=== PATIENT | male | born 1955 | race Caucasian/White ===

== ENCOUNTER → 2023-06-30 10:19 | Outpatient (REF) | payer BC, SELFPAY | LOC: DHCBS HW 10:19 | PROVIDERS: ATTENDING PHYSICIAN Internal Medicine Cardiovascular Disease; FAMILY PHYSICIAN Family Medicine | DX: I42.8 Other cardiomyopathies (principal); I50.22 Chronic systolic (congestive) heart failure; I48.0 Paroxysmal atrial fibrillation | CPT/HCPCS: 93306 ==

== ENCOUNTER → 2023-11-16 14:35 | Outpatient (REF) | payer BC, SELFPAY | LOC: HWEVLT 14:35 | PROVIDERS: ATTENDING PHYSICIAN Radiology Diagnostic Radiology | DX: I83.891 Varicose veins of right lower extremity with other complications (principal) | CPT/HCPCS: 93971 ==

== ENCOUNTER 2023-11-23 15:45 | Inpatient (IN) | payer BC, MEDICARE, SELFPAY ==
[2023-11-23] VITALS (12 sets, daily range): BP systolic 104–141; BP diastolic 53–86; BMI 41.7; BMI 40.6
[2023-11-23 11:43] LABS: Erythrocyte Sed Rate 24 mm/hour (0-20)
[2023-11-23 11:46] LABS: % Basophils 0.2 % (0-2); % Eosinophils 0.1 % (0-6); % Immature Granulocytes 0.5 % (0-0.5); % Lymphocytes 4.8 % (20.5-51.1); % Monocytes 15.8 % (1.7-9.3); % Neutrophils 78.6 % (42.2-75.2); Absolute Immature Granulocytes 0.1 10^3/uL (0-0.05); Absolute Lymphocytes 0.6 10^3/uL (1.2-3.4); Absolute Monocytes 1.9 10^3/uL (0.1-0.6); Absolute Neutrophils 9.4 10^3/uL (1.4-6.5); Hematocrit 37.8 % (39.0-52.0); Mean Corp Hgb Conc. 34.4 g/dL (33.0-37.0); Mean Corpuscular Hgb 31.3 pg (27.0-31.0); Mean Corpuscular Volume 91.1 fL (80.0-94.0); Mean Platelet Volume 10.2 fL (7.4-10.4); Nucleated Red Blood Cells % 0 % (-); Platelet Count 173 10^3/uL (130-400); Red Blood Cell Count 4.15 10^6/uL (4.70-6.10); Red Cell Dist. Width 15.9 % (11.5-14.5)
[2023-11-23 11:49] LABS: ALT (SGPT) 19 U/L (0-50); AST (SGOT) 28 U/L (17-59); Alkaline Phosphatase 70 U/L (38-126); Blood Urea Nitrogen 28 mg/dl (9-20); Calcium 9.3 mg/dl (8.4-10.2); Carbon Dioxide 25 mmol/L (22-30); Chloride 100 mmol/L (98-107); Estimated Creatinine Clearance 89 ml/min; Glucose 103 mg/dl (70-99); Potassium 3.6 mmol/L (3.5-5.1); Sodium 135 mmol/L (135-145); Total Bilirubin 2.1 mg/dl (0.2-1.3); Total Protein 6.7 g/dl (6.3-8.2); eGFR > 60.00
--- NOTE | 2023-11-23 11:49 | ED.GENMED ---
History of Present Illness
<Delvis Fernández PA-C - Last Filed: 11/23/23 14:13>
General
Chief Complaint: Fever
Source: patient
Time Seen by Provider: 11/23/23 11:03
History of Present Illness
History of Present Illness:
68-year-old male with history of A-fib on Xarelto, bilateral knee replacement revision done about 3 years ago presents with worsening left knee pain and development of fever. The knee pain has been ongoing for 2 to 3 days[place] He also has a history of gout. He has been taking allopurinol. No known injury to the knee however he notes more swelling and decreased function to the knee. He is having extreme difficulty walking secondary to the knee pain. He
notes a cough as well. He notes generalized fatigue. No other complaints at this time. He states [place] is [place]
Past History
<Delvis Fernández PA-C - Last Filed: 11/23/23 14:13>
Past History
ED Past Medical History: Arrthythmia (Atrial fibrillation), CHF, HTN, Psychiatric (Depression) and Other (DVT, BPH, Hematuria, Chronic right leg lymphedema); Negative Asthma, CAD or Cancer
ED Past Surgical History: Appendectomy and Orthopedic (Chas knee replacements)
Social History
Tobacco: Former smoker
Alcohol: Occasional
Drug: None
Personal:
Living: with family
Employment: Employed
Family History
Family History: Hypertension
Phy Exam
<Delvis Fernández PA-C - Last Filed: 11/23/23 14:13>
Physical Exam
Physical Exam:
General: Well-appearing male no acute respiratory distress
HEENT: Normocephalic atraumatic neck is supple
Heart: Regular rate and rhythm no murmurs
Lungs: Clear no wheeze
Abdomen is soft nontender nondistended
Musculoskeletal exam: The left knee is tender diffusely it is more warm to the touch than the contralateral side. There is a moderate effusion on exam to the knee. Range of motion of the knee is limited secondary to pain
Skin is without any rashes or overlying erythema over the left knee
Course
<Delvis Fernández PA-C - Last Filed: 11/23/23 14:13>
Orders/Labs/Results
Orders:
Orders
11/23/23 11:12
CR Chest - 2 Views Urgent
Comment:
Reason For Exam: fever, cough
11/23/23 11:18
COVID-19 Antigen Urgent
Source: Nasal Swab
CRP [C-Reactive Protein] Urgent
Complete Blood Count/With Diff Urgent
Comprehensive Metabolic Panel Urgent
Lactic Acid Urgent
Lyme Progressive Urgent
Sed Rate [Erythrocyte Sed Rate] Urgent
Blood Culture Urgent
JANET Source: Blood/Venous
Specimen Description:
11/23/23 11:58
Acetaminophen [Tylenol] 1,000 mg PO NOW STA
11/23/23 13:59
Body Fluid Cell Count Urgent
What is the Body Fluid: joint
Date Specimen was Collected: 11/23/23
Time Specimen was Collected: 13:26
Comment: with DIFF
Body Fluid Crystals Urgent
What is the Body Fluid: joint
Date Specimen was Collected: 11/23/23
Time Specimen was Collected: 13:26
Fluid Culture with Gram Stain Urgent
JANET Source: Joint Fluid
Specimen Description:
Date Specimen was Collected: 11/23/23
Time Specimen was Collected: 13:26
11/23/23 14:08
CeFAZolin 2 GRAM [Ancef] 2 grams in 10 ml IV NOW
11/23/23 14:10
0.9% Sodium Chloride 500 ml [Nss] 500 ml IV BOLUS
Abnormal Lab Results
11/23/23
11:18
WBC 12.0 H 10^3/uL
(4.8-10.8)
RBC 4.15 L 10^6/uL
(4.70-6.10)
Hct 37.8 L %
(39.0-52.0)
MCH 31.3 H pg
(27.0-31.0)
RDW 15.9 H %
(11.5-14.5)
Abs Immat Gran (auto) 0.1 H 10^3/uL
(0-0.05)
Absolute Neuts (auto) 9.4 H 10^3/uL
(1.4-6.5)
Absolute Lymphs (auto) 0.6 L 10^3/uL
(1.2-3.4)
Absolute Monos (auto) 1.9 H 10^3/uL
(0.1-0.6)
Neutrophils % 78.6 H %
(42.2-75.2)
Lymphocytes % 4.8 L %
(20.5-51.1)
Monocytes % 15.8 H %
(1.7-9.3)
ESR 24 H mm/hour
(0-20)
BUN 28 H mg/dl
(9-20)
Glucose 103 H mg/dl
(70-99)
Total Bilirubin 2.1 H mg/dl
(0.2-1.3)
C-Reactive Protein 82.90 H mg/L
(0.0-10.00)
11/23/23 11:18
11/23/23 11:18
Vital Signs
Initial and Last Documented VS:
Initial Vital Signs
Temp Pulse Resp BP Pulse Ox
101 F H 71 18 121/64 97
11/23/23 10:52 11/23/23 10:52 11/23/23 10:52 11/23/23 10:52 11/23/23 10:52
Last Documented Vital Signs
Temp Pulse Resp BP Pulse Ox
101.8 F H 78 17 118/62 100
11/23/23 13:48 11/23/23 12:00 11/23/23 12:00 11/23/23 12:00 11/23/23 12:00
<Clovis Coleman MD - Last Filed: 11/23/23 13:39>
Orders/Labs/Results
Orders:
Orders
11/23/23 11:12
CR Chest - 2 Views Urgent
Comment:
Reason For Exam: fever, cough
11/23/23 11:18
COVID-19 Antigen Urgent
Source: Nasal Swab
CRP [C-Reactive Protein] Urgent
Complete Blood Count/With Diff Urgent
Comprehensive Metabolic Panel Urgent
Lactic Acid Urgent
Lyme Progressive Urgent
Sed Rate [Erythrocyte Sed Rate] Urgent
Blood Culture Urgent
JANET Source: Blood/Venous
Specimen Description:
11/23/23 11:58
Acetaminophen [Tylenol] 1,000 mg PO NOW STA
11/23/23 13:59
Body Fluid Cell Count Urgent
What is the Body Fluid: joint
Date Specimen was Collected: 11/23/23
Time Specimen was Collected: 13:26
Comment: with DIFF
Body Fluid Crystals Urgent
What is the Body Fluid: joint
Date Specimen was Collected: 11/23/23
Time Specimen was Collected: 13:26
Fluid Culture with Gram Stain Urgent
JAENT Source: Joint Fluid
Specimen Description:
Date Specimen was Collected: 11/23/23
Time Specimen was Collected: 13:26
11/23/23 14:08
CeFAZolin 2 GRAM [Ancef] 2 grams in 10 ml IV NOW
11/23/23 14:10
0.9% Sodium Chloride 500 ml [Nss] 500 ml IV BOLUS
Abnormal Lab Results
11/23/23
11:18
WBC 12.0 H 10^3/uL
(4.8-10.8)
RBC 4.15 L 10^6/uL
(4.70-6.10)
Hct 37.8 L %
(39.0-52.0)
MCH 31.3 H pg
(27.0-31.0)
RDW 15.9 H %
(11.5-14.5)
Abs Immat Gran (auto) 0.1 H 10^3/uL
(0-0.05)
Absolute Neuts (auto) 9.4 H 10^3/uL
(1.4-6.5)
Absolute Lymphs (auto) 0.6 L 10^3/uL
(1.2-3.4)
Absolute Monos (auto) 1.9 H 10^3/uL
(0.1-0.6)
Neutrophils % 78.6 H %
(42.2-75.2)
Lymphocytes % 4.8 L %
(20.5-51.1)
Monocytes % 15.8 H %
(1.7-9.3)
ESR 24 H mm/hour
(0-20)
BUN 28 H mg/dl
(9-20)
Glucose 103 H mg/dl
(70-99)
Total Bilirubin 2.1 H mg/dl
(0.2-1.3)
C-Reactive Protein 82.90 H mg/L
(0.0-10.00)
11/23/23 11:18
11/23/23 11:18
Vital Signs
Initial and Last Documented VS:
Initial Vital Signs
Temp Pulse Resp BP Pulse Ox
101 F H 71 18 121/64 97
11/23/23 10:52 11/23/23 10:52 11/23/23 10:52 11/23/23 10:52 11/23/23 10:52
Last Documented Vital Signs
Temp Pulse Resp BP Pulse Ox
101.8 F H 78 17 118/62 100
11/23/23 13:48 11/23/23 12:00 11/23/23 12:00 11/23/23 12:00 11/23/23 12:00
<Delvis Fernández PA-C - Last Filed: 11/23/23 14:13>
MDM/Problems Addressed
Differential Diagnosis Includes:
Fever with associated left knee pain and swelling. Question possible viral illness like COVID or pneumonia to cause fever. He is outside frequently. Will check for Lyme. Also consider possibility of septic arthritis. There is an effusion but no
overlying erythema. Patient has history of gout and consider this as well. Will check labs. Chest x-ray pending COVID test pending. Will check inflammatory markers such as sed rate CRP lactic acid as well as blood culture. Consider
arthrocentesis of knee if needed pending results.
<Delvis Fernández PA-C - Last Filed: 11/23/23 14:13>
*Critical Care Note
Total Time (30-74mins, 75-104mins- exclusive of procedures): Not Applicable
<Delvis Fernández PA-C - Last Filed: 11/23/23 14:13>
Update Note
Update Note:
Chest x-ray clear COVID test negative. WBC is 12k with CRP 82. Blood cultures pending.
Discussed with orthopedics, Dr. Powers. I aspirated the left knee under sterile conditions. 60 mL of cloudy yellow fluid was aspirated from the knee. This was sent to the lab for cell count fluid culture with Gram stain and crystals. Ancef was
ordered. Will admit to hospital pending cultures. Admission would be for evaluation for possible septic arthritis
ED Attending Note
<Delvis Fernández PA-C - Last Filed: 11/23/23 14:13>
-
Portions of this chart may have been created with voice recognition software.� Occasional wrong word or��sound alike� substitutions may have occurred due to the inherent limitations of voice recognition software.
<Clovis Coleman MD - Last Filed: 11/23/23 13:39>
ED Attending Note
Patient seen and examined by attending physician: Yes
ED Attending Note:
History and exam concerning for potential left knee infection, as possible source for presenting fever, especially in light of previous knee surgery and hardware in place. Discussed with on-call orthopedic surgeon, Dr. Powers, who recommends
diagnostic arthrocentesis to be performed in ED and starting antibiotics afterwards. After procedure is performed, patient will be admitted for IV antibiotics and further treatment.
Discharge Plan
Departure
Patient Disposition: Admit
Date of Disposition: 11/23/23
Time of Disposition: 14:13
Admit to: Telemetry
Presentation/result/management discussed w/ accepting MD/DO: Hospitalist
Discharge Problem:
Fever
Prescriptions:
No Action
allopurinol 100 MG tablet
100 mg PO BID
finasteride 5 MG tablet
5 mg PO Q48H
nitroglycerin 0.4 MG tablet, sublingual
0.4 mg sublingual Q5MX3 PRN (Reason: chest pain)
Patient Comments:
pt states he hasn't used for 1 year
levothyroxine [Synthroid] 112 MCG tablet
112 mcg PO DAILY
Xarelto 20 MG tablet
20 mg PO QPM Qty: 0 0RF
ascorbic acid (vitamin C) [Vitamin C] 500 MG tablet
1,000 mg PO DAILY
potassium chloride [Klor-Con M20] 20 mEq tablet,ER particles/crystals
20 meq PO .BIDTUFR
furosemide 80 mg tablet
80 mg PO BID
cholecalciferol (vitamin D3) [Vitamin D3] 25 mcg (1,000 unit) Tablet
25 mcg PO DAILY
Calcium Citrate Plus [id number] gx-yz-[id number]-mg Tablet
1 tab PO QPM
losartan 25 MG tablet
25 mg PO DAILY
metoprolol succinate [Toprol XL] 50 mg tablet extended release 24 hr
50 mg PO BID Qty: 60 0RF
Rx Instructions:
Hold for HR<60
metolazone 2.5 mg Tablet
2.5 mg PO TUFR
Zinc & Vitamin C
1 tab PO DAILY
dofetilide 250 mcg capsule
250 mcg PO Q12
Referrals:
Rod Ludwig MD [Family Provider] -
Interventions
Interventions:
*Risk Screen - Suicide Last Done: 11/23/23 10:52
*General Assessment Last Done: 11/23/23 10:52
*Neglect/Abuse Screening Last Done: 11/23/23 10:52
ED- Neurological Assessment Last Done: 11/23/23 11:20
ED-Skin Assessment Last Done: 11/23/23 11:20
Discharge Date and Time
Print Language: GERMAN
[2023-11-23 12:07] LABS: COVID-19 Antigen Negative (Negative)
[2023-11-23] MEDS: TYLENOL 1000 MG PO (12:09)
[2023-11-23 12:15] LABS: Lactic Acid 1.3 mmol/L (0.7-2.0)
[2023-11-23] MEDS: NSS 500 IV (14:32)
[2023-11-23] MEDS: ANCEF 10 IV (14:33)
[2023-11-23 14:50] LABS: Body Fluid Mononuclear 12.3 %; Body Fluid Polymorphonuclear 87.7 %; Body Fluid WBC 19860 /CUMM
[2023-11-23 14:54] LABS: Body Fluid Second Tech EM
--- NOTE | 2023-11-23 15:33 | HPS.HSE ---
Addendum entered and electronically signed by Kiki Spears MD 11/23/23 17:13:
I saw and examined the patient.
The ELECTRICAL ENGINEERING INTERN or PA's note was reviewed and I agree with the note.
Comment:
68 years old male presented with fever and bilateral knee pain, left side more than the right side. Patient had an injury to his knee 3 days ago while [place] He [place] heavily on his bilateral lower extremities. He started
to have increasing pain and inability to walk with fever and chills. Patient denied feeling ill or sick before that accident. In the emergency room, he had high fever with leukocytosis. Patient denied open wounds.
Physical Exam
General: Comfortable and Conversant
HEENT: Anicteric and Moist mucous membranes
Respiratory: Clear and Non Labored Respirations
Cardiac: S1/S2 and Regular Rhythm
GI: Soft and Non Tender
Musculoskeletal: No Clubbing and No Cyanosis. tenderness in right knee with limited movements. aspiration done
Neuro: AAAOX3, he followed commands.
Psych: calm.
# Sepsis POA , fever, leukocytosis, tachycardia
Right knee septic arthritis. X ray :Intact left total knee revision arthroplasty. Small to moderate knee joint effusion.
Fluid gram stain c/w gram positive cocci
start on IV vancomycin and IV Rocephin
Do blood cultures
Monitor temp curve, BP and WBC
Appreciate ortho input
Chronic HFmrEF
No sob
No chest pain
-Echo Jun 2023: Global hypokinesis with EF 40-45%. Stage I diastolic dysfunction. Mild to moderate mitral regurgitation.
-Continue Jardiance, and Furosemide
-Hold Metolazone
-Monitor Is&Os and Daily Weights
Paroxysmal Atrial Fibrillation
-Continue dofetilide and metoprolol
-Hold Xarelto for possible OR
Essential Hypertension
-Continue eplerenone, losartan and metoprolol
Hypothyroidism
-Continue levothyroxine
BPH
-Continue Finasteride
Class III Obesity
-Affects all aspects of care
DVT proph: SCDs until able to resume Xarelto
Code Status: Full Code
Total time spent to see the patient, examine the patient on the floor, review data and lab results, discuss treatment plan with patient, ER doctor, nursing staff around 75 minutes
Original Note:
Family Physician
-
Family Physician: Rod Ludwig
Chief Complaint
-
Left Knee Pain
History of Present Illness
Patient is a 68 y/o male with a PMH of HFmrEF, paroxysmal AFib on Xarelto, and bilateral total knee replacements with revisions in 2020 who reports to the ED for left knee pain x 3 days. Patient states the knee pain started Wednesday evening. He denies
any injury or trauma to his knowledge but did [place] out of the water. He admits to swelling, erythema and decreased range of motion. He reports he has had a fever since this morning with
max temp was 102.8 F, chills, shakes, and sweating. He admits he has shortness of breath with exertion at his baseline without any worsening symptoms. He has chronic venous insufficiency in his right lower leg with edema but denies any edema in his
left leg. He denies chest pain, palpitations, cough, abdominal pain, nausea, vomiting, dysuria, changes to bowel movements, or numbness/tingling in his extremities. He has a history of gout and is on allopurinol. He admits he [place] but denies any tick bites.
Medical History
Past Medical History
Past Medical History: Reports Other
Additional Past Medical History:
Chronic HFmrEF
Paroxysmal Atrial Fibrillation
Hypothyroidism
Benign Hypertension
KILEY
Morbid Obesity
Depression
Gout
BPH
DVT
Past Surgical History: Reports Other
Additional Past Surgical History:
Bilateral Knee Replacement with Bilateral Revisions
Appendectomy
Social History
Tobacco: Former Smoker (Quit over 50 years)
Alcohol: Occasional
Family History
Family History: Not pertinent
Allergies / Home Medications
Allergies reflects when Allergies were last updated in [email or web address].
Home Medications with original date entered in [email or web address]
Allergy/Medication List:
Allergies
Allergy/AdvReac Type Severity Reaction Status Date / Time
amiodarone Allergy Shortness Verified 11/23/23 10:51
of Breath,
hyperthyroidism
spironolactone Allergy breast Verified 11/23/23 10:51
tenderness
Home Medications
allopurinol 100 mg tablet 100 mg PO BID Gout 09/09/14
finasteride 5 mg tablet 5 mg PO Q48H Urinary issue 08/24/15
nitroglycerin 0.4 mg sublingual tablet 0.4 mg sublingual Q5MX3 PRN chest pain 10/11/17
levothyroxine 112 mcg tablet (Synthroid) 112 mcg PO DAILY Thyroid 09/20/20
rivaroxaban 20 mg tablet (Xarelto) 20 mg PO QPM ##0 10/15/20
ascorbic acid (vitamin C) 500 mg tablet (Vitamin C) 1,000 mg PO DAILY 01/24/21
furosemide 80 mg tablet 80 mg PO BID 06/08/22
losartan 25 mg tablet 25 mg PO DAILY 06/08/22
potassium chloride 20 mEq tablet,extended release(part/cryst) (Klor-Con M) 40 meq PO BID 06/08/22
metoprolol succinate 50 mg tablet,extended release 24 hr (Toprol XL) 50 mg PO BID #60 tabs 06/14/22
dofetilide 250 mcg capsule 250 mcg PO Q12H 08/13/22
metolazone 2.5 mg tablet 2.5 mg PO TUTHSA 08/13/22
acetaminophen 650 mg tablet,extended release 1,300 mg PO [id number] PRN mild pain 11/23/23
empagliflozin 10 mg tablet (Jardiance) 10 mg PO DAILY 11/23/23
eplerenone 50 mg tablet 50 mg PO DAILY 11/23/23
ketoconazole 2 % topical cream 1 applic topical BID chest rash 11/23/23
multivit with [id number] 18 mg iron-800 mcg-150 mg tablet (Vitamin D3 Complete) 1 tab PO DAILY 11/23/23
potassium chloride 20 mEq tablet,extended release(part/cryst) 20 meq PO NOON 11/23/23
zinc sulfate 50 mg zinc (220 mg) tablet 50 mg PO DAILY 11/23/23
Review of Systems
-
A 12 point ROS was completed and negative except as noted: Yes
Constitutional: Reports Fever and Chills
Respiratory: Denies Cough or Trouble Breathing
Cardiac: Denies Chest Pain or Palpitations
Abdomen/GI: Denies Abdominal Pain, Nausea, Vomiting or Diarrhea
: Denies Dysuria or Frequency
Musculoskeletal: Reports See HPI
Physical Exam
Vital Signs
Vital Signs
Temp Pulse Resp BP Pulse Ox
101.8 F H 66 15 118/63 98
11/23/23 13:48 11/23/23 14:30 11/23/23 14:30 11/23/23 14:30 11/23/23 14:30
Physical Exam
General: Comfortable and Conversant
HEENT: Anicteric and Moist mucous membranes
Respiratory: Clear and Non Labored Respirations
Cardiac: S1/S2 and Regular Rhythm
GI: Soft and Non Tender
Musculoskeletal: No Clubbing and No Cyanosis
Laboratory Results
-
11/23/23 11:18
11/23/23 11:18
Laboratory Results
Lactic Acid 1.3 mmol/L (0.7-2.0) 11/23/23 11:18
Total Bilirubin 2.1 mg/dl (0.2-1.3) H 11/23/23 11:18
AST 28 U/L (17-59) 11/23/23 11:18
ALT 19 U/L (0-50) 11/23/23 11:18
Alkaline Phosphatase 70 U/L (38-126) 11/23/23 11:18
Data Reviewed
-
Diagnostic Radiology: Report Reviewed by me
Lab Data: Labs Reviewed by me
Impression/Plan
-
Sepsis, suspect secondary to Septic Arthritis vs Lyme
-Consult Orthopedics
-Gram statin with gram positive cocci - Await fluid culture
-Await Lyme screen
-Continue ceftriaxone 2mg IV Daily
Chronic HFmrEF
-Echo Jun 2023: Global hypokinesis with EF 40-45%. Stage I diastolic dysfunction. Mild to moderate mitral regurgitation.
-Continue Jardiance, and Furosemide
-Hold Metolazone
-Monitor Is&Os and Daily Weights
Paroxysmal Atrial Fibrillation
-Continue dofetilide and metoprolol
-Hold Xarelto for possible OR
Essential Hypertension
-Continue eplerenone, losartan and metoprolol
Hypothyroidism
-Continue levothyroxine
BPH
-Continue Finasteride
Class III Obesity
-Affects all aspects of care
DVT proph: SCDs until able to resume Xarelto
Code Status: Full Code
--- NOTE | 2023-11-23 16:02 | CON.ORTHO ---
Consultation
-
Date/Time Consultation Requested: 11/23/2023 1516
Date/Time Consultation Performed: 11/23/2023 1600
Requesting Provider: MARCIE Bowman
Performing Provider: MARCIE Askew, Dr. Wolfgang Powers
Reason for Consultation: Left TKA septic arthritis
Consultation - Orthopedics
History
68-year-old male significant past medical history of paroxysmal A-fib on Xarelto, obesity, gout with significant past surgical history of bilateral total knee arthroplasty with subsequent revision for aseptic loosening with Dr. Alejandre for acute
left knee pain and swelling and constitutional symptoms of fever. Reports sudden onset of symptoms nearly 3 days ago without any specific injury but progressive onset of pain swelling erythema and decreased range of motion. He had intermittent
fevers recorded up to 102.8 with chills shakes and sweating. At time of consultation patient was in the emergency room and has undergone aspiration of the knee with antibiotics held until post aspiration. Denies other issues at this timeframe. He
was last seen in the office with Dr. Alejandre in January 2022 with some anterior knee pain bilaterally but with unremarkable x-rays and symptoms more towards the right knee with aspiration at that timeframe for an effusion. He reports at baseline
his left knee is typically doing better comparatively towards his right.
Allergies / Home Medications
Past medical history: Obesity, BPH, DVT. Depression, hypertension, sleep apnea, paroxysmal atrial fibrillation, nonischemic cardiomyopathy, history of gout.
Past surgical history appendectomy 2013, cardioversion 2016, right shoulder unspecified 2013, left total knee arthroplasty index 2011, right knee arthroplasty in 2018 index right knee revision for aseptic loosening October 2020 and left knee revision
for aseptic loosening December [address] Alejandre
Medications: See list
Allergies: See list
Family history: Noncontributory
12 point ROS: Negative on the described in history of present illness
Social history: Community ambulator without assist devices at baseline, previous smoker
Allergy/AdvReac Type Severity Reaction Status Date / Time
amiodarone Allergy Shortness Verified 11/23/23 10:51
of Breath,
hyperthyroidism
spironolactone Allergy breast Verified 11/23/23 10:51
tenderness
�Medication �Instructions �Recorded
allopurinol 100 mg tablet 100 mg PO BID Gout 09/09/14
finasteride 5 mg tablet 5 mg PO Q48H Urinary issue 08/24/15
nitroglycerin 0.4 mg sublingual 0.4 mg sublingual Q5MX3 PRN chest 10/11/17
tablet pain
levothyroxine 112 mcg tablet 112 mcg PO DAILY Thyroid 09/20/20
(Synthroid)
ascorbic acid (vitamin C) 500 mg 1,000 mg PO DAILY Supplement 01/24/21
tablet (Vitamin C)
furosemide 80 mg tablet 80 mg PO BID Fluid 06/08/22
Retention/Swelling
losartan 25 mg tablet 25 mg PO DAILY Blood Pressure 06/08/22
potassium chloride 20 mEq 40 meq PO BID Electrolyte Repletion 06/08/22
tablet,extended
release(part/cryst) (Klor-Con M)
dofetilide 250 mcg capsule 250 mcg PO Q12H Arrhythmia 08/13/22
metolazone 2.5 mg tablet 2.5 mg PO TUTHSA Fluid 08/13/22
Retention/Swelling
acetaminophen 650 mg 1,300 mg PO [id number] PRN mild pain 11/23/23
tablet,extended release
empagliflozin 10 mg tablet 10 mg PO DAILY Diabetes 11/23/23
(Jardiance)
eplerenone 50 mg tablet 50 mg PO DAILY Fluid 11/23/23
Retention/Swelling
ketoconazole 2 % topical cream 1 applic topical BID chest rash 11/23/23
metoprolol succinate 50 mg 50 mg PO BID Blood Pressure 11/23/23
tablet,extended release 24 hr
(Toprol XL)
multivit with 1 tab PO DAILY Supplement 11/23/23
[id number] 18 mg
iron-800 mcg-150 mg tablet
(Vitamin D3 Complete)
potassium chloride 20 mEq 20 meq PO NOON Electrolyte 11/23/23
tablet,extended release(part/cryst) Repletion
rivaroxaban 20 mg tablet (Xarelto) 20 mg PO QPM Blood Clot 11/23/23
Prevention/Tx
zinc sulfate 50 mg zinc (220 mg) 50 mg PO DAILY Supplement 11/23/23
tablet
Vital Signs / Lab Results
Temp Pulse Resp BP Pulse Ox
101.8 F H 66 15 118/63 98
11/23/23 13:48 11/23/23 14:30 11/23/23 14:30 11/23/23 14:30 11/23/23 14:30
11/23/23 11:18
11/23/23 11:18
Physical examination:
General: Patient is well-nourished well-developed no acute distress conscious alert and oriented. Is evidence of discomfort about the left knee with complaints of specific not well-controlled left knee pain.
Musculoskeletal: Focused examination of the left lower extremity shows soft tissue swelling and effusion about the left knee. He has significant tenderness globally about the left knee. Neurovascular intact L3-S1. Tolerates range of approximately
20 degrees range of motion 10 degrees lacking from terminal into about 30 degrees of flexion with significant discomfort
Imaging: Independent review of x-rays taken of the left knee show revision total knee arthroplasty with patellar resurfacing with effusion. There is a lucency of the medial tibial plateau; office imaging in [facility] PACS from the outpatient office
with x-rays in January 2022 shows similar lucency without significant changes. No other acute osseous abnormalities or hardware complications noted
Labs: Left knee aspirate at 1400 on 11/23/23 showed total white count of 19,860 with 87.7% polymorphonuclear cells. Negative for crystals. Cultures pending
WBC 12.0
ESR 24
CRP 82.9
Assessment / Plan
68-year-old male with significant past medical history of left total knee arthroplasty and subsequent revision for aseptic loosening [place] [address] Alejandre for acute onset of pain and swelling about the left knee atraumatic with aspirate
concerning for periprosthetic joint infection.
We discussed the differential diagnosis and the concern for periprosthetic joint infection given his clinical presentation, lack of traumatic onset of symptoms, and aspirate values. We discussed recommendation for debridement irrigation and success
rates with this for treating the root cause of this infection however he does have a complicated scenario given that he has revision knee arthroplasty. operative and nonoperative interventions reviewed with the patient to include the risks and
benefits rehabilitation and prognosis for each. The treatment and operative technique, postoperative follow-up, postoperative rehabilitation and surgical prognosis was reviewed in detail. After thorough discussion of potential treatment options
the patient wish to proceed with operative intervention.
N.p.o. at midnight
On antibiotics since aspirate obtained
Plan for OR tomorrow for left knee debridement irrigation with possible poly exchange with Dr. Powers
Hold Joss at this time
[2023-11-23] MEDS: DILAUDID 0.25 MG IV ×2 (16:19→20:11)
[2023-11-23] MEDS: LASIX 80 MG PO (17:24)
[2023-11-23] MEDS: ROXICODONE 5 MG PO ×2 (17:24→23:46)
[2023-11-23] MEDS: VANCOCIN 540 MG IV (18:03)
--- NOTE | 2023-11-23 19:06 | PHA.VAN.IN ---
Assessment
- Assessment
Renal Function: Appears similar to baseline
Concomitant Antimicrobials: ROCEPHIN
- Previous Dosing Experience
Previous Regimen: NONE
AUC Dosing Plan
- Dosing Variables
Dosing Weight (kg): 132
Dosing CrCl (ml/min): 88
Vd coefficient (L/kg): 0.5
- Empiric Dosing
Initial / Loading Dose: 2GM
Maintenance Regimen: 1250MG IV Q12H
Estimated AUC (mcg*h/mL): 518
Estimated Peak (mcg*h/mL): 31.3
Estimated Trough (mcg/ml): 13.9
Estimated Half Life (H): 8.9
Pharmacokinetics Vancomycin I
- -
Patient Age: 68
Patient Sex: Male
Vancomycin Day #: 1
Indication: [facility] And Joint (SEPSIS)
Requesting Provider: CESAR
Height / Weight:
Height 5 ft 11 in
Actual Weight 132.086 kg
Pertinent Past Medical History: PROIR JOINT REVISION
- Vital Signs / Lab Results
Temp Pulse Resp BP Pulse Ox
98.8 F 69 20 140/74 97
11/23/23 16:56 11/23/23 16:56 11/23/23 16:56 11/23/23 17:24 11/23/23 16:56
Lab Results - Hematology
11/23/23
11:18
WBC 12.0 H
Lab Results - Chemistry
11/23/23
11:18
BUN 28 H
Creatinine 1.1
Estimated Creat Clear 89
Albumin 4.0
11/23/23
11:18
Lactic Acid 1.3
Microbiology Results
11/23/23 13:59 Gram Stain - Preliminary
Joint Fluid
[2023-11-23] MEDS: ROCEPHIN 2000 MG IV (20:08)
[2023-11-23] MEDS: KCL 40 MEQ PO (20:08)
[2023-11-23] MEDS: STERILE WATER FOR INJECTION 20 ML IV (20:08)
[2023-11-23] MEDS: TIKOSYN 250 MCG PO (20:08)
[2023-11-23] MEDS: ZYLOPRIM 100 MG PO (20:09)
[2023-11-23] MEDS: TYLENOL 650 MG PO (20:09)
[2023-11-23] MEDS: TOPROL XL 50 MG PO (20:09)
[2023-11-24] VITALS (12 sets, daily range): BP systolic 100–150; BP diastolic 52–96; BMI 41.0
[2023-11-24] MEDS: TYLENOL 650 MG PO ×2 (00:09→12:06)
[2023-11-24 06:00] LABS: Hematocrit 33.8 % (39.0-52.0); Hemoglobin 11.3 g/dL (13.0-18.0); Mean Corp Hgb Conc. 33.4 g/dL (33.0-37.0); Mean Corpuscular Volume 92.9 fL (80.0-94.0); Mean Platelet Volume 9.8 fL (7.4-10.4); Platelet Count 144 10^3/uL (130-400); Red Blood Cell Count 3.64 10^6/uL (4.70-6.10); Red Cell Dist. Width 15.8 % (11.5-14.5); White Blood Cell Count 11.7 10^3/uL (4.8-10.8)
[2023-11-24] MEDS: SYNTHROID 112 MCG PO (06:01)
[2023-11-24] MEDS: VANCOCIN 275 MG IV ×2 (06:01→18:41)
[2023-11-24] MEDS: DILAUDID 0.25 MG IV ×4 (06:06→22:30)
--- NOTE | 2023-11-24 07:47 | W.PN.UPDATE ---
Update Note
Progress Note Update
Mr. Clark is resting comfortably in bed this morning. He does endorse pain in the left knee, and overall reports feeling unwell. He is scheduled to proceed with I&D with poly exchange of his left knee today under the direction of Dr. Powers.
Directed exam fo the left lower extremity reveals large effusion about the left knee. No significant erythema, No wound issues. Generalized tenderness to palpation about the knee. Calf soft and nontender. Neurovascularly intact distally.
Gram stain from knee aspirate reveals WBC and gram positive cocci. Blood culture reveals gram positive cocci in clusters.
The procedure was discussed in detail with the patient including risks, benefits, alternatives, recovery process and potential complications. Surgical and blood consent are signed and in the patient's chart. NPO until surgery.
--- NOTE | 2023-11-24 08:09 | PHA.VAN.FU ---
Vancomycin Assessment / Plan
- Assessment
Renal Function: No New Labs Today
WBC's are: Stable
In the past 24 hrs, patient has been: Febrile
Concomitant Antimicrobials: ceftriaxone
- Dosing Plan
Continue: Vanc 1250mg Q12H
- Monitoring Plan
No level(s) ordered at this time: consider levels in next few days
- Follow Up
Pharmacy will continue to follow.
Vancomycin Follow UP
- -
Patient Age: 68
Patient Sex: Male
Vancomycin Day #: 2
Indication: Bone And Joint
Requesting Provider: Jhon Bowman
Pertinent Antimicrobial Allergies:
no pertinent antibiotic allergies
Height / Weight:
Height 5 ft 11 in
Actual Weight 132.086 kg
Pertinent Past Medical History: BMI ~41
- Vital Signs / Lab Results
Temp Pulse Resp BP Pulse Ox
99.1 F 94 19 139/96 97
11/24/23 07:00 11/24/23 07:00 11/24/23 07:00 11/24/23 07:00 11/24/23 07:00
Lab Results - Hematology
11/23/23 11/24/23
11:18 05:37
WBC 12.0 H 11.7 H
Lab Results - Chemistry
11/23/23
11:18
BUN 28 H
Creatinine 1.1
Estimated Creat Clear 89
Albumin 4.0
11/23/23
11:18
Lactic Acid 1.3
Microbiology Results
11/23/23 11:18 Blood Culture - Preliminary
Blood/Venous Positive culture in progress
Gram Stain - Final
11/23/23 13:59 Gram Stain - Preliminary
Joint Fluid
[2023-11-24] MEDS: PROSCAR 5 MG PO (08:15)
[2023-11-24] MEDS: ZYLOPRIM 100 MG PO ×2 (08:15→20:43)
[2023-11-24] MEDS: COZAAR 25 MG PO (08:15)
[2023-11-24] MEDS: TOPROL XL 50 MG PO ×2 (08:16→20:42)
[2023-11-24] MEDS: TIKOSYN 250 MCG PO ×2 (08:19→20:42)
[2023-11-24] MEDS: JARDIANCE 10 MG PO (08:19)
[2023-11-24] MEDS: INSPRA 50 MG PO (08:19)
[2023-11-24] MEDS: ROXICODONE 5 MG PO ×2 (08:31→17:26)
--- NOTE | 2023-11-24 09:35 | W.PN.HOSP.TC ---
Today's Communication/Plan
-
c/w IV ABx
Repeat blood culture
MRI Lumbar area
NPO for now
Holding diuretic and potassium while NPO
Assessment / Plan
Assessment / Plan
Physical Exam
General: Comfortable and Conversant
HEENT: Anicteric and Moist mucous membranes
Respiratory: Clear and Non Labored Respirations
Cardiac: S1/S2 and Regular Rhythm
GI: Soft and Non Tender
Musculoskeletal: No Clubbing and No Cyanosis. tenderness in right knee with limited movements. aspiration done
Neuro: AAAOX3, he followed commands.
Psych: calm.
68 years old male presented with fever and bilateral knee pain, left side more than the right side.
# Sepsis POA , fever, leukocytosis, tachycardia
Right knee septic arthritis. X ray :Intact left total knee revision arthroplasty. Small to moderate knee joint effusion.
Sepsis resolved
# Staph Bacteremia
Source: septic arthritis. No heart device.
He denies respiratory/ GI symptoms. No toothache. His dog scratched his right wrist while ago.
He reports lower back pain that started 2-3 weeks ago but pain went down to his knees. Will do MRI Lumbar
# Left knee septic arthritis
Fluid gram stain c/w gram positive cocci
c/w IV vancomycin and IV Rocephin
Monitor temp curve, BP and WBC
Appreciate ortho input, plan for washout today
#Chronic HFmrEF
No sob
No chest pain
-Echo Jun 2023: Global hypokinesis with EF 40-45%. Stage I diastolic dysfunction. Mild to moderate mitral regurgitation.
-Continue Jardiance
-Hold Metolazone, KCl, Furosemide for NPO
-Monitor Is&Os and Daily Weights
#Paroxysmal Atrial Fibrillation
-Continue dofetilide and metoprolol
-Hold Xarelto for possible OR
#Essential Hypertension
-Continue eplerenone, losartan and metoprolol
#Hypothyroidism
-Continue levothyroxine
#BPH
-Continue Finasteride
#Class III Obesity
-Affects all aspects of care
DVT proph: SCDs until able to resume Xarelto
Code Status: Full Code
Total time spent to see the patient, examine the patient on the floor, review data and lab results, discuss treatment plan with patient, Ortho, nursing staff around 55 minutes
Anticipated Discharge: > 48 hours
Subjective/Interval History
-
Date of Service: November 24, 2023
He reports fever and chills for a week before the fall
he also reports lower back pain
Objective Data
-
Labs:
Laboratory Results
11/24/23
05:37
WBC 11.7 H
Hgb 11.3 L
Hct 33.8 L
Plt Count 144
Vital Signs:
Vital Signs
Temp Pulse Resp BP Pulse Ox
99.1 F 94 19 139/96 97
11/24/23 07:00 11/24/23 07:00 11/24/23 07:00 11/24/23 08:15 11/24/23 07:00
I&O
11/23/23 11/24/23 11/25/23
06:59 06:59 06:59
Intake Total 360 / 360
Output Total 700 / 700
Balance -340 / -340
[2023-11-24 11:14] LABS: Glycohemoglobin (HgbA1c) 5.4 % (4.0-5.6)
--- NOTE | 2023-11-24 11:41 | CON.ID ---
Consultation
-
Date/Time Consultation Requested: 11/24/2023 07:25
Date/Time Consultation Performed: 11/20/2023 1117
Requesting Provider: Dr. Spears
Performing Provider: Dr. Bustillos
Reason for Consultation: Bacteremia; left knee PJI
Chief Complaint / Past History
History of Present Illness
Lucian Clark is a 68-year-old man being evaluated at the request of Dr. Spears in regards to bacteremia and a left knee prosthetic joint infection. History is obtained from chart review, along with patient interview.
The patient reports a history of low back pain for which she is followed by chiropractor. He also deals with lower extremity varicosities, and reports that occasionally he has bleeding from some of them. 2 weeks ago he had an episode of bleeding
from a right lower extremity varicosity which finally stopped after using cayenne pepper and pressure. Over the past weekend, he noted some pain developing in his left knee. He states his knee felt fine on Wednesday, but he reports that he spent a
lot of time walking around on Wednesday and needed a cane to support him. He also developed some swelling of the knee that day and some fevers in the morning. The next day he went to the beach, and went swimming, but had significant pain in the
knee. Ultimately he came to the hospital for further evaluation where blood cultures were obtained and reveal the presence of Staph aureus. Additionally left knee was aspirated, with cultures also revealing growth of Staph aureus. Infectious
Diseases is asked to comment upon further antimicrobial management.
Past History
Additional Past Medical History:
A-fib
Gout
CHF
HTN
Depression
Hx DVT
BPH
Additional Past Surgical History:
Bilateral total knee replacement
Appendectomy
Allergy History:
amiodarone Allergy (Verified 11/23/23 10:51)
Shortness of Breath, hyperthyroidism
spironolactone Allergy (Verified 11/23/23 10:51)
breast tenderness
Medications Reviewed: Yes
Current Antibiotics:
Rocephin
Vancomycin
Social History
Tobacco: Former Smoker
Alcohol: Occasional
Drug: None
Personal:
Living: With Family
Employment: Employed
Review of Systems
Vital Signs
Temp Pulse Resp BP Pulse Ox
99.1 F 94 19 139/96 97
11/24/23 07:00 11/24/23 07:00 11/24/23 07:00 11/24/23 08:15 11/24/23 07:00
Physical Exam
Physical Exam
Constitutional: No Acute Distress, Comfortable and Non-toxic
Eyes: No Conjunctival Hemorrhage and Sclera Anicteric
Oral: No Thrush and No Ulcers
Cardiovascular: Regular Rate and S1/S2; Negative S3/S4
Pulmonary: Clear; Negative Wheezes, Rales or Rhonchi
Gastrointestinal: Soft, Non Tender, Non Distended and Normal Bowel Sounds
Extremities: Edema (RLE), Erythema (RLE) and Venous Insufficiency (B/L LE's)
Musculoskeletal: Joint Swelling (left knee), Joint Effusion (left knee) and Other (Significant left knee warmth.)
Skin: Warm and Dry; Negative Rash
Neurological: Awake and Alert
Psychological: Calm
Lab / Diagnostic Study Results
11/24/23 05:37
11/23/23 11:18
Abs Immat Gran (auto) 0.1 10^3/uL (0-0.05) H 11/23/23 11:18
Absolute Neuts (auto) 9.4 10^3/uL (1.4-6.5) H 11/23/23 11:18
Absolute Lymphs (auto) 0.6 10^3/uL (1.2-3.4) L 11/23/23 11:18
Absolute Monos (auto) 1.9 10^3/uL (0.1-0.6) H 11/23/23 11:18
Absolute Basos (auto) 0.0 10^3/uL (0-0.2) 11/23/23 11:18
Immature Gran % 0.5 % (0-0.5) 11/23/23 11:18
Neutrophils % 78.6 % (42.2-75.2) H 11/23/23 11:18
Lymphocytes % 4.8 % (20.5-51.1) L 11/23/23 11:18
Monocytes % 15.8 % (1.7-9.3) H 11/23/23 11:18
Eosinophils % 0.1 % (0-6) 11/23/23 11:18
Basophils % 0.2 % (0-2) 11/23/23 11:18
ESR 24 mm/hour (0-20) H 11/23/23 11:18
Lactic Acid 1.3 mmol/L (0.7-2.0) 11/23/23 11:18
C-Reactive Protein 82.90 mg/L (0.0-10.00) H 11/23/23 11:18
Microbiology Results
Micro:
11/24/23 08:58 Blood Culture - Pending
Blood/Venous
11/23/23 11:18 Blood Culture - Preliminary
Blood/Venous Staphylococcus aureus
Gram Stain - Final
11/23/23 13:59 Body Fluid Culture - Preliminary
Joint Fluid Staphylococcus aureus
Gram Stain - Preliminary
Imaging:
11/23/2023 X-ray left knee: Intact left total knee revision arthroplasty. Small to moderate knee joint effusion noted.
Assessment / Plan
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
Staph aureus bacteremia
Fever
Leukocytosis
Elevated CRP
A-fib
Gout
CHF
HTN
Depression
Hx DVT
BPH
Recommendations:
Continue with vancomycin for the present.
Transition ceftriaxone to cefazolin 2 g IV every 8 hours
Patient for tentative washout.
Will repeat blood cultures tomorrow.
Await final culture data to guide antimicrobial selection and de-escalation.
[2023-11-24] MEDS: KCL PO (12:02)
--- NOTE | 2023-11-24 13:21 | PTCARENOTE ---
2nd CHG and linen change. report called to OR pt going to 2S post op. ABT sent with chart
--- NOTE | 2023-11-24 14:02 | CM ---
CM following for d/c planning
Pt off unit
For I&D with poly exchange of his left knee today under the direction of Dr. Powers
CM will follow to complete initial assessment and for d/c needs
Plan - tbd
[2023-11-24] MEDS: ANCEF IV (15:50)
[2023-11-24] MEDS: NORMOSOL-R 1000 IV (16:13)
--- NOTE | 2023-11-24 16:51 | PTCARENOTE ---
pt returned from OR awake and alert, vs wnl. Inder and ice on left knee +PP b/l
[2023-11-24] MEDS: ANCEF 10 IV (20:42)
[2023-11-25] VITALS (7 sets, daily range): BP systolic 124–137; BP diastolic 60–74; PULSE 69; BMI 40.7
[2023-11-25] MEDS: ANCEF 10 IV ×3 (05:12→21:45)
[2023-11-25] MEDS: VANCOCIN 275 MG IV (05:14)
[2023-11-25] MEDS: SYNTHROID 112 MCG PO (05:14)
[2023-11-25] MEDS: DILAUDID 0.25 MG IV ×4 (05:30→21:45)
[2023-11-25] MEDS: COZAAR 25 MG PO (07:55)
[2023-11-25] MEDS: ZYLOPRIM 100 MG PO ×2 (07:55→21:47)
[2023-11-25] MEDS: JARDIANCE 10 MG PO (07:55)
[2023-11-25] MEDS: TOPROL XL 50 MG PO ×2 (07:55→21:46)
[2023-11-25] MEDS: TIKOSYN 250 MCG PO ×2 (07:55→21:46)
[2023-11-25] MEDS: INSPRA 50 MG PO (07:55)
--- NOTE | 2023-11-25 09:01 | PN.CDI ---
Addendum entered and electronically signed by Kiki Spears MD 11/25/23 10:48:
Diagnosis remains as in PN now
Original Note:
CDI
- -
CDI:
Physician Documentation Request
Admit Date: 11/23/23 15:45
Dear Doctor Regan,
Please review the following and provide your response in the progress notes.
Clinical Indicators:
- 11/23 PN indicates 'Paroxysmal Atrial Fibrillation'
- Prior admission Cardiology note 06/13/22 'Persistent atrial fibrillation'
- 'Chronic tikosyn therapy'
- 's/p PVI x2 2018'
- 's/p CV 04/20/22'
If possible, please provide further specificity regarding atrial fibrillation, such as:
Paroxysmal atrial fibrillation - terminates spontaneously or with intervention within 7 days of onset
Persistent atrial fibrillation - episodes of continuous AF that last more than 7 days and do not self-terminate
Permanent atrial fibrillation - when a decision has been made to accept the presence of AF and there is no further attempt to restore or maintain sinus rhythm
Other - please specify
Use of terms such as suspected, likely, concern for, or probable (associated with a specific diagnosis that is being evaluated, monitored, or treated as if it exists) are acceptable and can be coded in the inpatient setting, when documented at the
time of discharge.
Thank you,
Zi Lucia RN
CDI Specialist
Please use your independent medical judgment in providing your response.
--- NOTE | 2023-11-25 09:04 | W.PN.ORTHO ---
Today's Communication / Plan
-
POD #1 s/p left knee I&D and liner exchange for PJI
-WBAT with walker.
-PT/OT to tolerance.
-Cultures growing Staph aureus - awaiting sensitivities.
-Appreciate ID recommendations for IV antibiotics. Currently IV vanco and cefazolin.
-[place] to be removed in 2 weeks.
-F/u in office in 2 weeks.
-Ortho will continue to follow while inpatient.
Assessment
.
Distal Motor Intact: Yes
Dressing:
Clean, dry and intact.
Assessment:
POD #1 s/p left knee I&D and liner exchange for PJI
-WBAT with walker.
-PT/OT to tolerance.
-Cultures growing Staph aureus - awaiting sensitivities.
-Appreciate ID recommendations for IV antibiotics. Currently IV vanco and cefazolin.
-[place] to be removed in 2 weeks.
-F/u in office in 2 weeks.
-Ortho will continue to follow while inpatient.
Plan
.
Surgery / Date: 11/24/23 L knee I&D, poly exchange - Dr. Powers
Activity:
Out of bed.
PT/OT
Subjective
.
.:
Patient resting comfortably. Reports his left knee pain and motion is better than it was prior to surgery yesterday. Also complaining of lower back pain, so order for lumbar spine MRI has been placed.
Vital Signs and Labs
.
Vital Signs and Labs:
Lab Results
11/24/23 05:37
11/23/23 11:18
Temp Pulse Resp BP Pulse Ox
98.4 F 54 18 130/69 97
11/25/23 07:00 11/25/23 07:00 11/25/23 07:00 11/25/23 07:00 11/25/23 07:00
Physical Exam
-
Left knee: dressing is c/d/i. ROM knee 0-60 degrees with less discomfort. Calf soft and non tender to palpation. N/v intact distally
--- NOTE | 2023-11-25 10:39 | W.PN.ID1 ---
Addendum entered and electronically signed by Alan Bustillos, 11/25/23 14:57:
I saw and evaluated the patient. I reviewed the resident�s note and agree with findings and plan as documented in the resident�s note.
Patient overall feeling well.
Cultures reveal growth of MSSA.
Narrow antibiotics to cefazolin alone. Pt will need 6 wk course of abx.
Repeat blood cultures have been ordered. Would hold on PICC placement until blood cultures are negative x 72 hours.
Home infusion sheet has been placed on paper chart.
Original Note:
Date of Service
Date of Service: November 25, 2023
Today's Communication
Continue Cefazolin, Vancomycin
Repeat Blood culture.
Assessment / Plan
Impression
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
-POD #1 s/p left knee I&D and liner exchange
Staph aureus bacteremia
Fever
Leukocytosis
Elevated CRP
Other Conditions
A-fib
Gout
CHF
HTN
Depression
Hx DVT
BPH
Recommendations:
POD #1 s/p left knee I&D and liner exchange.
Anticipated pain in the operated site.
Leukocytosis improving. Patient afebrile in the past 24 hrs.
Continue cefazolin, Vancomycin.
Staph aureus bacteremia from prior blood cultures. Repeat blood cultures today.
Await final culture data to guide antibiotic selection and de-escalation.
Chief Complaint
-: Bacteremia
Subjective / Review of Systems
Review of Systems: No Fever and No Chills
Vital Signs / Physical Exam
Vital Signs
Vital Signs
Temp Pulse Resp BP Pulse Ox
98.4 F 54 18 130/69 97
11/25/23 07:00 11/25/23 07:00 11/25/23 07:00 11/25/23 07:00 11/25/23 07:45
Physical Exam
Constitutional: No Acute Distress
Cardiovascular: S1/S2
Pulmonary: Clear
Gastrointestinal: Soft, Non Tender, Non Distended and Normal Bowel Sounds
Musculoskeletal: Other (Left knee- with dressing.Calf - non tender, Distal neurovasculature intact.)
Skin: Warm and Dry
Neurological: Awake, Alert, Oriented and AO x 3
Objective Data
Lab Data
Lab Results
11/24/23 05:37
11/23/23 11:18
ESR 24 mm/hour (0-20) H 11/23/23 11:18
Estimated Creat Clear 89 ml/min 11/23/23 11:18
Lactic Acid 1.3 mmol/L (0.7-2.0) 11/23/23 11:18
Total Bilirubin 2.1 mg/dl (0.2-1.3) H 11/23/23 11:18
AST 28 U/L (17-59) 11/23/23 11:18
ALT 19 U/L (0-50) 11/23/23 11:18
Alkaline Phosphatase 70 U/L (38-126) 11/23/23 11:18
C-Reactive Protein 82.90 mg/L (0.0-10.00) H 11/23/23 11:18
Most recent labs reviewed.
Micro Results:
11/24/23 15:12 Anaerobic Culture - Preliminary
Knee - Left Culture pending. Anaerobic cultures are examined after 3
days incubation. Additional information to follow.
11/24/23 15:12 Tissue Culture - Preliminary
Knee - Left Staphylococcus aureus
Gram Stain - Preliminary
11/23/23 13:59 Body Fluid Culture - Final
Joint Fluid S aureus-Methicillin Sensitive
Gram Stain - Final
11/23/23 11:18 Blood Culture - Preliminary
Blood/Venous Staphylococcus aureus
Gram Stain - Final
11/24/23 08:58 Blood Culture - Pending
Blood/Venous
Imaging:
11/23/2023 X-ray left knee: Intact left total knee revision arthroplasty. Small to moderate knee joint effusion noted.
--- NOTE | 2023-11-25 10:48 | W.PN.HOSP.TC ---
Today's Communication/Plan
-
.
c/w IV Ancef
f/w Lumbar MRI
Resume oral diuretics
Assessment / Plan
Assessment / Plan
Physical Exam
General: Comfortable and Conversant
HEENT: Anicteric and Moist mucous membranes
Respiratory: Clear and Non Labored Respirations
Cardiac: S1/S2 and Regular Rhythm
GI: Soft and Non Tender
Musculoskeletal: No Clubbing and No Cyanosis. Clean dressing around right knee.
Neuro: AAAOX3, he followed commands.
Psych: calm.
68 years old male presented with fever and bilateral knee pain, left side more than the right side.
# Sepsis POA , fever, leukocytosis, bacteremia, tachycardia
Right knee septic arthritis. X ray :Intact left total knee revision arthroplasty. Small to moderate knee joint effusion.
Sepsis resolved
# Staph Aureus MSSA Bacteremia
Source: septic arthritis. No heart device.
He denies respiratory/ GI symptoms. No toothache. His dog scratched his right wrist while ago.
He reported lower back pain that started 2-3 weeks ago but pain went down to his knees. Will do MRI Lumbar
# Left knee Staph septic arthritis / Acute hematogenous infection, left total knee arthroplasty.
s/p Irrigation and debridement of left total knee arthroplasty with polyethylene liner exchange by Dr Powers 11/23.
s/p IV vancomycin & Rocephin . ID changed to Ancef , can stop Vancomycin
Monitored temp curve, BP and WBC
Appreciate ortho input, s/p washout 11/23.
#Chronic HFmrEF
No sob
No chest pain
-Echo Jun 2023: Global hypokinesis with EF 40-45%. Stage I diastolic dysfunction. Mild to moderate mitral regurgitation.
-Continue Jardiance
- Resume Metolazone, KCl, Furosemide after resuming oral intake.
-Monitor Daily Weight
#Paroxysmal Atrial Fibrillation
-Continue dofetilide and metoprolol
-Hold Xarelto for possible OR
#Essential Hypertension
-Continue eplerenone, losartan and metoprolol
#Hypothyroidism
-Continue levothyroxine
#BPH
-Continue Finasteride
#Class III Obesity
-Affects all aspects of care
DVT proph: SCDs until able to resume Xarelto
Code Status: Full Code
Total time spent to see the patient, examine the patient on the floor, review data and lab results, discuss treatment plan with patient, Ortho, nursing staff around 57 minutes
Anticipated Discharge: > 48 hours
Subjective/Interval History
-
Date of Service: November 25, 2023
No chest pain No sob
No fevers
Pain is less in left knee
Objective Data
-
Vital Signs:
Vital Signs
Temp Pulse Resp BP Pulse Ox
98.4 F 54 18 130/69 97
11/25/23 07:00 11/25/23 07:00 11/25/23 07:00 11/25/23 07:00 11/25/23 07:45
I&O
11/24/23 11/25/23 11/26/23
06:59 06:59 06:59
Intake Total 360 / 360 1730 / 1730
Output Total 700 / 700 1380 / 1380
Balance -340 / -340 350 / 350
[2023-11-25] MEDS: ZAROXOLYN 2.5 MG PO (11:41)
[2023-11-25] MEDS: KCL 20 MEQ PO (11:46)
[2023-11-25 14:21] LABS: Lyme Antibody Screen, EIA Negative (Negative)
--- NOTE | 2023-11-25 15:01 | CM ---
Addendum entered by Monique Moore 11/25/23 15:12:
PT recommends Home PT vs Outpatient PT
CM will continue to monitor; send referral or obtain script
Original Note:
Met with patient at bedside; initial assessment completed
Pharmacy verified: [facility], [address]
Patient reported that he lives in a one floor [place]; his son, [id number] and grandchildren ages 4 and 5 live with him; 1 step to enter; no railing; bathroom has tub w/shower, grab bar; has a shower chair to use if needed
PLOF: reports he is independent with ADLs, uses Rolling Walker with ambulation; Worked 2 part-time jobs; Drives
DME: CPAP is not used consistently
Transportation: drove self to the hospital; if he is permitted will drive self home; otherwise family/friend will provide ride home
No SNF or Home Health history; If Home Health services is recommended, preference is [facility]
Verbalized concerns that he may have insecurity in the future with transportation; [employer] website provided
Plan: discharge to home when stable; CM will monitor for DC needs/services
[2023-11-25] MEDS: LASIX 80 MG PO (16:00)
[2023-11-25] MEDS: KCL 40 MEQ PO (21:45)
[2023-11-25] MEDS: FLUSH (NSS) 4 FLUSH IV (21:48)
[2023-11-26 03:05] VITALS: BP 128/67
[2023-11-26] MEDS: DILAUDID 0.25 MG IV ×3 (05:00→20:38)
[2023-11-26] MEDS: ANCEF 10 IV ×3 (05:00→20:39)
[2023-11-26] MEDS: SYNTHROID 112 MCG PO (05:04)
[2023-11-26] MEDS: FLUSH (NSS) 2 FLUSH IV (05:04)
[2023-11-26 06:16] VITALS: BMI 40.8
[2023-11-26 07:20] LABS: Hematocrit 31.2 % (39.0-52.0); Hemoglobin 10.6 g/dL (13.0-18.0); Mean Corpuscular Hgb 31.8 pg (27.0-31.0); Mean Corpuscular Volume 93.7 fL (80.0-94.0); Mean Platelet Volume 10.8 fL (7.4-10.4); Platelet Count 163 10^3/uL (130-400); Red Blood Cell Count 3.33 10^6/uL (4.70-6.10); Red Cell Dist. Width 15.3 % (11.5-14.5); White Blood Cell Count 11.4 10^3/uL (4.8-10.8)
--- NOTE | 2023-11-26 07:29 | PN.CDI ---
CDI
- -
CDI:
Physician Documentation Request
Admit Date: 11/23/23 15:45
Dear Doctor Priya,
Please review the following and provide your response in the progress notes.
Clinical Indicators:
- 11/23 Operative Report indicates debridement without specificity
- 'Irrigation and debridement of left total knee'
- 'I removed the polyethylene insert so as to facilitate debridement in the posterior knee'
Could you provide, in the progress notes further clarification regarding the debridement.
Please specify the type of debridement performed:
1. Excisional Debridement - defined as removal by excision of devitalized tissue, necrosis or slough
2. Non-excisional debridement - defined as removal of devitalized tissue, necrosis or slough by such methods as irrigation, brushing, scrubbing or washing.
If the debridement was excisional, please also include:
1. Type of instrument used (#11 blade, #15 blade etc.)
2. What was excised (necrotic tissue, gangrenous tissue, slough etc.)
For excisional or non-excisional, please also include:
1. Depth of debridement (skin, subcutaneous tissue, fascia, muscle, bone etc)
2. Size and appearance of the wound (L, W, D, color of wound, drainage)
Use of terms such as suspected, likely, concern for, or probable (associated with a specific diagnosis that is being evaluated, monitored, or treated as if it exists) are acceptable and can be coded in the inpatient setting, when documented at the
time of discharge.
Thank you,
Zi Lucia RN
CDI Specialist
Please use your independent medical judgment in providing your response.
[2023-11-26 07:53] LABS: Blood Urea Nitrogen 38 mg/dl (9-20); Calcium 8.4 mg/dl (8.4-10.2); Carbon Dioxide 28 mmol/L (22-30); Chloride 99 mmol/L (98-107); Estimated Creatinine Clearance 97 ml/min; Glucose 119 mg/dl (70-99); Potassium 4.1 mmol/L (3.5-5.1); Sodium 133 mmol/L (135-145); eGFR > 60.00
[2023-11-26 07:59] VITALS: BP 131/67
[2023-11-26] MEDS: TIKOSYN 250 MCG PO ×2 (09:11→20:58)
[2023-11-26] MEDS: PROSCAR 5 MG PO (09:12)
[2023-11-26] MEDS: JARDIANCE 10 MG PO (09:12)
[2023-11-26] MEDS: KCL 40 MEQ PO ×2 (09:12→20:39)
[2023-11-26] MEDS: ZYLOPRIM 100 MG PO ×2 (09:12→20:41)
[2023-11-26] MEDS: INSPRA 50 MG PO (09:12)
[2023-11-26] MEDS: LASIX 80 MG PO ×2 (09:12→15:54)
[2023-11-26] MEDS: TOPROL XL 50 MG PO ×2 (09:13→20:40)
[2023-11-26] MEDS: TYLENOL 650 MG PO (09:16)
[2023-11-26] MEDS: COZAAR PO (09:16)
--- NOTE | 2023-11-26 10:19 | W.PN.HOSP.TC ---
Today's Communication/Plan
-
Resuming Xarelto
c/w diuretic therapy and potassium as home doses,
Encourage PT
Assessment / Plan
Assessment / Plan
Physical Exam
General: Comfortable and Conversant
HEENT: Anicteric and Moist mucous membranes
Respiratory: Clear and Non Labored Respirations
Cardiac: S1/S2 and Regular Rhythm
GI: Soft and Non Tender
Musculoskeletal: No Clubbing and No Cyanosis. Clean dressing around right knee.
Neuro: AAAOX3, he followed commands.
Psych: calm.
68 years old male presented with fever and bilateral knee pain, left side more than the right side.
# Sepsis POA , fever, leukocytosis, bacteremia, tachycardia
Right knee septic arthritis. X ray :Intact left total knee revision arthroplasty. Small to moderate knee joint effusion.
Sepsis resolved
# Staph Aureus MSSA Bacteremia
Source: septic arthritis. No heart device.
He denies respiratory/ GI symptoms. No toothache. His dog scratched his right wrist while ago.
He reported lower back pain that started 2-3 weeks ago but pain went down to his knees. Lumbar MRI ruled out discitis/ osteomyelitis/abscess.
# Left knee Staph septic arthritis / Acute hematogenous infection, left total knee arthroplasty.
s/p Irrigation and debridement of left total knee arthroplasty with polyethylene liner exchange by Dr Powers 11/23.
s/p IV vancomycin & Rocephin. On IV 2 gm Ancef. Await clearing of blood infection before doing Pic Line.
Monitored temp curve, BP and WBC
Appreciate ortho input, s/p washout 11/23.
#Chronic HFmrEF
No sob
No chest pain
-Echo Jun 2023: Global hypokinesis with EF 40-45%. Stage I diastolic dysfunction. Mild to moderate mitral regurgitation.
-Continue Jardiance
- Resumed Metolazone, KCl, Furosemide.
-Monitor Daily Weight
# Mild hyponatremia
# Mild acute blood loss anemia
#Paroxysmal Atrial Fibrillation
-Continue dofetilide and metoprolol
- Resume Xarelto tonight
#Essential Hypertension
-Continue eplerenone, losartan and metoprolol
#Hypothyroidism
-Continue levothyroxine
#BPH
-Continue Finasteride
#Class III Obesity
-Affects all aspects of care
DVT proph: SCDs until able to resume Xarelto
Code Status: Full Code
Total time spent to see the patient, examine the patient on the floor, review data and lab results, discuss treatment plan with patient, Ortho, nursing staff around 55 minutes
Anticipated Discharge: > 48 hours
Subjective/Interval History
-
Date of Service: November 26, 2023
No chest pain
No sob
Less pain in left knee
Objective Data
-
Labs:
Laboratory Results
11/26/23
06:45
WBC 11.4 H
Hgb 10.6 L
Hct 31.2 L
Plt Count 163
Sodium 133 L
Potassium 4.1
Chloride 99
Carbon Dioxide 28
BUN 38 H
Creatinine 1.0
Glucose 119 H
Calcium 8.4
Vital Signs:
Vital Signs
Temp Pulse Resp BP Pulse Ox
98.5 F 62 17 119/60 98
11/26/23 07:59 11/26/23 09:13 11/26/23 07:59 11/26/23 09:16 11/26/23 07:59
I&O
11/25/23 11/26/23 11/27/23
06:59 06:59 06:59
Intake Total 1730 / 1730 300 / 300
Output Total 1380 / 1380 1725 / 1725
Balance 350 / 350 -1425 / -1425
[2023-11-26 10:55] VITALS: BP 129/64; PULSE 61
[2023-11-26 11:27] VITALS: BP 113/80
[2023-11-26] MEDS: KCL 20 MEQ PO (12:48)
--- NOTE | 2023-11-26 12:53 | W.PN.ID1 ---
Addendum entered and electronically signed by Anna Momin MD 11/26/23 16:07:
I saw and evaluated the patient. I reviewed the resident�s note and agree with findings and plan as documented in the resident�s note with the following additions/corrections:
MSSA bacteremia - nonsustained from known, controlled source - knee
Repeat a second set of blood cultures today to confirm clearance
Contralateral knee also with hardwear no erythema, warmth, swelling; deferred left knee dressing take down. dressing clean, dry, intact
continue cefazolin for a 6 week course
OK for PICC line placement when 11/24 blood culture no growth at 72 hours (wednesday) with likely wednesday discharge
Original Note:
Date of Service
Date of Service: November 26, 2023
Today's Communication
Continue cefazolin
Repeat blood cultures
Assessment / Plan
Impression
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
-POD #2 s/p left knee I&D and liner exchange
Staph aureus bacteremia
Fever
Leukocytosis
Elevated CRP
Other Conditions
A-fib
Gout
CHF
HTN
Depression
Hx DVT
BPH
Recommendations:
POD #2 s/p left knee I&D and liner exchange.
Anticipated pain in the operated site.
Leukocytosis improving. Patient afebrile in the past 24 hrs.
Lumbar MRI�no evidence of osteomyelitis,discitis, abscess.
Vancomycin discontinued
Continue cefazolin.
Staph aureus( MSSA) bacteremia from prior blood cultures. Source likely from left knee joint infection. No heart device.
Repeat blood cultures today.
Await clearing of bacteremia before PICC placement.
Chief Complaint
-: Bacteremia and Other (Septic left knee joint)
Subjective / Review of Systems
Review of Systems: No Fever and No Chills
Vital Signs / Physical Exam
Vital Signs
Vital Signs
Temp Pulse Resp BP Pulse Ox
97.8 F 69 16 113/80 99
11/26/23 11:27 11/26/23 11:27 11/26/23 11:27 11/26/23 11:27 11/26/23 11:27
Physical Exam
Constitutional: No Acute Distress and Comfortable
Cardiovascular: S1/S2
Pulmonary: Clear
Gastrointestinal: Soft, Non Tender, Non Distended and Normal Bowel Sounds
Extremities: Other (Left lower extremity-left knee joint in dressing. Neurovascular intact. Calf soft and nontender to palpation)
Skin: Warm and Dry
Neurological: Awake, Alert, Oriented and AO x 3
Objective Data
Lab Data
Lab Results
11/26/23 06:45
11/26/23 06:45
ESR 24 mm/hour (0-20) H 11/23/23 11:18
Estimated Creat Clear 97 ml/min 11/26/23 06:45
Lactic Acid 1.3 mmol/L (0.7-2.0) 11/23/23 11:18
Total Bilirubin 2.1 mg/dl (0.2-1.3) H 11/23/23 11:18
AST 28 U/L (17-59) 11/23/23 11:18
ALT 19 U/L (0-50) 11/23/23 11:18
Alkaline Phosphatase 70 U/L (38-126) 11/23/23 11:18
C-Reactive Protein 82.90 mg/L (0.0-10.00) H 11/23/23 11:18
Most recent labs reviewed.
Micro Results:
11/25/23 12:05 Blood Culture - Preliminary
Blood/Venous No Growth in 24 hours- Final report to follow
11/26/23 11:15 Blood Culture - Pending
Blood/Venous
11/24/23 08:58 Blood Culture - Preliminary
Blood/Venous No Growth in 48 hours- Final report to follow
11/23/23 11:18 Blood Culture - Final
Blood/Venous S aureus-Methicillin Sensitive
Gram Stain - Final
11/24/23 15:12 Tissue Culture - Preliminary
Knee - Left S aureus-Methicillin Sensitive
Gram Stain - Preliminary
11/24/23 15:12 Anaerobic Culture - Preliminary
Knee - Left Culture pending. Anaerobic cultures are examined after 3
days incubation. Additional information to follow.
11/23/23 13:59 Body Fluid Culture - Final
Joint Fluid S aureus-Methicillin Sensitive
Gram Stain - Final
Imaging:
11/23/2023 X-ray left knee: Intact left total knee revision arthroplasty. Small to moderate knee joint effusion noted.
--- NOTE | 2023-11-26 13:01 | W.PN.ORTHO ---
Today's Communication / Plan
-
POD #2 s/p left knee I&D and liner exchange for PJI
-WBAT with walker.
-PT/OT to tolerance.
-Cultures growing Staph aureus - awaiting sensitivities.
-Appreciate ID recommendations for IV antibiotics. Currently IV vanco and cefazolin.
-[place] to be removed in 2 weeks. Weekly inflammatory markers.
-F/u in office in 2 weeks.
-Ortho will continue to follow while inpatient.
Assessment
.
Distal Motor Intact: Yes
Dressing:
Clean, dry and intact.
Plan
.
Surgery / Date: 11/24/23 L knee I&D, poly exchange - Dr. Powers
Activity:
Out of bed.
PT/OT
Subjective
.
.:
Patient resting comfortably.
Vital Signs and Labs
.
Vital Signs and Labs:
Lab Results
11/26/23 06:45
11/26/23 06:45
Temp Pulse Resp BP Pulse Ox
97.8 F 69 16 113/80 99
11/26/23 11:27 11/26/23 11:27 11/26/23 11:27 11/26/23 11:27 11/26/23 11:27
[2023-11-26 15:49] VITALS: BP 147/80
[2023-11-26] MEDS: XARELTO 20 MG PO (17:22)
[2023-11-26] MEDS: VALTREX 2000 MG PO ×2 (17:22→20:40)
[2023-11-26 22:58] VITALS: BP 131/74
[2023-11-27] MEDS: ANCEF 10 IV ×3 (05:05→19:31)
[2023-11-27] MEDS: SYNTHROID 112 MCG PO (05:05)
[2023-11-27] MEDS: DILAUDID 0.25 MG IV ×3 (05:09→19:29)
[2023-11-27 06:00] VITALS: BMI 40.2
[2023-11-27 07:25] VITALS: BP 149/79
--- NOTE | 2023-11-27 08:34 | W.PN.HOSP.TC ---
Today's Communication/Plan
-
c/w Ancef
Assessment / Plan
Assessment / Plan
Physical Exam
General: Comfortable and Conversant
HEENT: Anicteric and Moist mucous membranes
Respiratory: Clear and Non Labored Respirations
Cardiac: S1/S2 and Regular Rhythm
GI: Soft and Non Tender
Musculoskeletal: No Clubbing and No Cyanosis. Clean dressing around right knee.
Neuro: AAAOX3, he followed commands.
Psych: calm.
68 years old male presented with fever and bilateral knee pain, left side more than the right side.
# Sepsis POA , fever, leukocytosis, bacteremia, tachycardia
Right knee septic arthritis. X ray :Intact left total knee revision arthroplasty. Small to moderate knee joint effusion.
Sepsis resolved
Leukocytosis reslved.
# Staph Aureus MSSA Bacteremia
Await blood cultures 11/24 and 11/25 , will need clear blood culture before pic line
Source: septic arthritis. No heart device.
He denies respiratory/ GI symptoms. No toothache. His dog scratched his right wrist while ago.
He reported lower back pain that started 2-3 weeks ago but pain went down to his knees. Lumbar MRI ruled out discitis/ osteomyelitis/abscess.
# Left knee Staph septic arthritis / Acute hematogenous infection, left total knee arthroplasty.
s/p Irrigation and debridement of left total knee arthroplasty with polyethylene liner exchange by Dr Powers 11/23.
s/p IV vancomycin & Rocephin. On IV 2 gm Ancef. Await clearing of blood infection before doing Pic Line.
Monitored temp curve, BP and WBC
Appreciate ortho input, s/p washout 11/23.
# Herpes infection of mouth
recurrent upon stress
Valtrex 2 mg BID for two doses.
#Chronic HFmrEF
No sob
No chest pain
-Echo Jun 2023: Global hypokinesis with EF 40-45%. Stage I diastolic dysfunction. Mild to moderate mitral regurgitation.
-Continue Jardiance
- Resumed Metolazone, KCl, Furosemide.
-Monitored Daily Weight
# Mild hyponatremia
# Mild acute blood loss anemia
#Paroxysmal Atrial Fibrillation
-Continue dofetilide and metoprolol
- Resume Xarelto tonight
#Essential Hypertension
-Continue eplerenone, losartan and metoprolol
#Hypothyroidism
-Continue levothyroxine
#BPH
-Continue Finasteride
#Class III Obesity
-Affects all aspects of care
DVT proph: SCDs until able to resume Xarelto
Code Status: Full Code
Total time spent to see the patient, examine the patient on the floor, review data and lab results, discuss treatment plan with patient, Ortho, nursing staff around 55 minutes
Anticipated Discharge: > 48 hours
Subjective/Interval History
-
Date of Service: November 27, 2023
Doing well
Less pain in left knee
Objective Data
-
Labs:
Laboratory Results
11/27/23
06:00
WBC Pending
Hgb Pending
Hct Pending
Plt Count Pending
Sodium Pending
Potassium Pending
Chloride Pending
Carbon Dioxide Pending
BUN Pending
Creatinine Pending
Glucose Pending
Calcium Pending
Vital Signs:
Vital Signs
Temp Pulse Resp BP Pulse Ox
98.7 F 62 17 149/79 94
11/27/23 07:25 11/27/23 07:25 11/27/23 07:25 11/27/23 07:25 11/27/23 07:25
I&O
11/26/23 11/27/23 11/28/23
06:59 06:59 06:59
Intake Total 300 / 300 840 / 840
Output Total 1725 / 1725 1610 / 1610
Balance -1425 / -1425 -770 / -770
[2023-11-27] MEDS: TIKOSYN 250 MCG PO ×2 (08:38→19:34)
[2023-11-27] MEDS: INSPRA 50 MG PO (08:38)
[2023-11-27] MEDS: JARDIANCE 10 MG PO (08:39)
[2023-11-27] MEDS: ZYLOPRIM 100 MG PO ×2 (08:39→19:31)
[2023-11-27] MEDS: KCL 40 MEQ PO ×2 (08:39→19:31)
[2023-11-27] MEDS: COZAAR 25 MG PO (08:39)
[2023-11-27] MEDS: LASIX 80 MG PO ×2 (08:39→15:06)
[2023-11-27] MEDS: TOPROL XL 50 MG PO ×2 (08:39→19:33)
[2023-11-27] MEDS: ZAROXOLYN 2.5 MG PO (08:41)
[2023-11-27] MEDS: TYLENOL 650 MG PO (08:44)
[2023-11-27 09:34] LABS: Hematocrit 31.8 % (39.0-52.0); Hemoglobin 10.7 g/dL (13.0-18.0); Mean Corp Hgb Conc. 33.6 g/dL (33.0-37.0); Mean Corpuscular Hgb 31.4 pg (27.0-31.0); Mean Corpuscular Volume 93.3 fL (80.0-94.0); Mean Platelet Volume 10.6 fL (7.4-10.4); Platelet Count 205 10^3/uL (130-400); Red Blood Cell Count 3.41 10^6/uL (4.70-6.10); Red Cell Dist. Width 15.5 % (11.5-14.5); White Blood Cell Count 9.8 10^3/uL (4.8-10.8)
[2023-11-27 09:41] LABS: Calcium 8.7 mg/dl (8.4-10.2); Carbon Dioxide 30 mmol/L (22-30); Estimated Creatinine Clearance 96 ml/min; Potassium 4.1 mmol/L (3.5-5.1); eGFR > 60.00
[2023-11-27 09:50] LABS: Blood Urea Nitrogen 39 mg/dl (9-20); Chloride 97 mmol/L (98-107); Glucose 123 mg/dl (70-99); Sodium 135 mmol/L (135-145)
[2023-11-27] MEDS: KCL 20 MEQ PO (11:59)
--- NOTE | 2023-11-27 12:13 | W.PN.ORTHO ---
Today's Communication / Plan
-
POD #3 s/p left knee I&D and liner exchange for PJI
-WBAT with walker
-PT/OT to tolerance
-Cultures growing Staph aureus (MSSA) - continue with Ancef. Blood Cx negative @ 24 hours- will follow for PICC placement
-Appreciate ID recommendations with ABX direction
-Xarelto for DVT ppx, or per primary
-[place] to be removed in 2 weeks. Weekly inflammatory markers- ordered today
-F/u in office in 2 weeks for sierra out
-Ortho will continue to follow while inpatient.
Assessment
.
Distal Motor Intact: Yes
Dressing:
Clean, dry and intact. Soft dressing in place left knee
Assessment:
POD#3 Left knee I&D with poly liner exchange
All things considered, doing/feeling well
Calf soft, nontender
Plan
.
Surgery / Date: November 23 L knee I&D, poly exchange (Vikoren)
DVT Prophylaxis: Other (xarelto)
Activity:
Out of bed. May be WBAT LLE on walker
PT/OT
Discharge Plan: Other (Per CM)
Subjective
.
.:
Patient resting comfortably in bed. In good spirits
Vital Signs and Labs
.
Vital Signs and Labs:
Lab Results
11/27/23 08:49
11/27/23 08:49
Temp Pulse Resp BP Pulse Ox
98.7 F 62 17 149/79 94
11/27/23 07:25 11/27/23 08:41 11/27/23 07:25 11/27/23 08:41 11/27/23 07:25
[2023-11-27 13:34] LABS: Erythrocyte Sed Rate 76 mm/hour (0-20)
[2023-11-27 15:36] VITALS: BP 135/70
[2023-11-27] MEDS: XARELTO 20 MG PO (17:37)
[2023-11-27 23:30] VITALS: BP 150/75
[2023-11-28] MEDS: DILAUDID 0.25 MG IV ×4 (02:30→19:41)
[2023-11-28] MEDS: SYNTHROID 112 MCG PO (05:05)
[2023-11-28] MEDS: ANCEF 10 IV ×3 (05:05→19:24)
[2023-11-28 06:00] VITALS: BMI 40.0
[2023-11-28 07:25] VITALS: BP 137/74
[2023-11-28] MEDS: TIKOSYN 250 MCG PO ×2 (07:43→19:24)
[2023-11-28] MEDS: KCL 40 MEQ PO ×2 (07:43→19:23)
[2023-11-28] MEDS: INSPRA 50 MG PO (07:43)
[2023-11-28] MEDS: JARDIANCE 10 MG PO (07:43)
[2023-11-28] MEDS: ZYLOPRIM 100 MG PO ×2 (07:44→19:24)
[2023-11-28] MEDS: PROSCAR 5 MG PO (07:44)
[2023-11-28] MEDS: LASIX 80 MG PO ×2 (07:44→15:46)
[2023-11-28] MEDS: COZAAR 25 MG PO (07:44)
[2023-11-28] MEDS: TOPROL XL 50 MG PO ×2 (07:44→19:24)
--- NOTE | 2023-11-28 09:40 | W.PN.HOSP.TC ---
Today's Communication/Plan
-
c/w IV Ancef
Assessment / Plan
Assessment / Plan
Physical Exam
General: Comfortable and Conversant
HEENT: Anicteric and Moist mucous membranes
Respiratory: Clear and Non Labored Respirations
Cardiac: S1/S2 and Regular Rhythm
GI: Soft and Non Tender
Musculoskeletal: No Clubbing and No Cyanosis. Clean dressing around right knee.
Neuro: AAAOX3, he followed commands.
Psych: calm.
68 years old male presented with fever and bilateral knee pain, left side more than the right side.
# Sepsis POA , fever, leukocytosis, bacteremia, tachycardia
Right knee septic arthritis. X ray :Intact left total knee revision arthroplasty. Small to moderate knee joint effusion.
Sepsis resolved
Leukocytosis reslved.
# Staph Aureus MSSA Bacteremia
Await blood cultures 11/24 and 11/25 with no growth
Will need pic line, will d/w ID doctor.
Source: septic arthritis. No heart device.
He denies respiratory/ GI symptoms. No toothache. His dog scratched his right wrist while ago.
He reported lower back pain that started 2-3 weeks ago but pain went down to his knees. Lumbar MRI ruled out discitis/ osteomyelitis/abscess.
# Left knee Staph septic arthritis / Acute hematogenous infection, left total knee arthroplasty.
s/p Irrigation and debridement of left total knee arthroplasty with polyethylene liner exchange by Dr Powers 11/23.
s/p IV vancomycin & Rocephin. On IV 2 gm Ancef. Await clearing of blood infection before doing Pic Line.
Monitored temp curve, BP and WBC
Appreciate ortho input, s/p washout 11/23.
# Herpes infection of mouth
recurrent upon stress
Valtrex 2 mg BID for two doses.
#Chronic HFmrEF
No sob
No chest pain
-Echo Jun 2023: Global hypokinesis with EF 40-45%. Stage I diastolic dysfunction. Mild to moderate mitral regurgitation.
-Continue Jardiance
- Resumed Metolazone, KCl, Furosemide.
-Monitored Daily Weight
# Mild hyponatremia
# Mild acute blood loss anemia
#Paroxysmal Atrial Fibrillation
-Continue dofetilide and metoprolol
- Resume Xarelto tonight
#Essential Hypertension
-Continue eplerenone, losartan and metoprolol
#Hypothyroidism
-Continue levothyroxine
#BPH
-Continue Finasteride
#Class III Obesity
-Affects all aspects of care
DVT proph: SCDs until able to resume Xarelto
Code Status: Full Code
Total time spent to see the patient, examine the patient on the floor, review data and lab results, discuss treatment plan with patient, ID doctor, nursing staff around 57 minutes
Anticipated Discharge: 24 - 48 hours
Subjective/Interval History
-
Date of Service: November 28, 2023
No chest pain
No sob
No fevers
Objective Data
-
Vital Signs:
Vital Signs
Temp Pulse Resp BP Pulse Ox
98.4 F 57 17 137/74 98
11/28/23 07:25 11/28/23 07:25 11/28/23 07:25 11/28/23 07:25 11/28/23 07:25
I&O
11/27/23 11/28/23 11/29/23
06:59 06:59 06:59
Intake Total 840 / 840 1560 / 1560
Output Total 1610 / 1610 2900 / 2900
Balance -770 / -770 -1340 / -1340
--- NOTE | 2023-11-28 10:46 | W.PN.ORTHO ---
Today's Communication / Plan
-
POD #4 s/p left knee I&D and liner exchange for [facility]I
-WBAT with walker
-PT/OT to tolerance
-Cultures growing Staph aureus (MSSA) - continue with Ancef. Blood Cx negative @ 24 hours- will follow for PICC placement
-Appreciate ID recommendations with ABX direction
-Xarelto for DVT ppx, or per primary
-[place] to be removed in 2 weeks. Weekly inflammatory markers- ordered today
-F/u in office in 2 weeks for sierra out
-Ortho will continue to follow while inpatient.
Assessment
.
Distal Motor Intact: Yes
Dressing:
Clean, dry and intact. ABD and sari compression in place.
Assessment:
POD#4 Left knee I&D with poly liner exchange
Overall, all things considered, doing/feeling well
Calf soft, nontender
Plan
.
Surgery / Date: November 23 L knee I&D, poly exchange (Vikoren)
DVT Prophylaxis: Other (Xarelto)
Activity:
Out of bed. WBAT on walker
PT/OT
Discharge Plan: Other (appreciate CM)
Subjective
.
.:
Patient resting comfortably this AM. No significant pain left knee
Vital Signs and Labs
.
Vital Signs and Labs:
Lab Results
11/27/23 08:49
11/27/23 08:49
Temp Pulse Resp BP Pulse Ox
98.4 F 57 17 137/74 98
11/28/23 07:25 11/28/23 07:25 11/28/23 07:25 11/28/23 07:25 11/28/23 07:25
[2023-11-28 11:10] VITALS: BP 136/73
[2023-11-28 11:35] VITALS: PULSE 62; O2SAT 97
[2023-11-28] MEDS: KCL 20 MEQ PO (12:02)
[2023-11-28 15:19] VITALS: BP 138/65
[2023-11-28] MEDS: XARELTO 20 MG PO (17:26)
[2023-11-28 19:10] VITALS: BP 121/59
[2023-11-28 23:10] VITALS: BP 135/65
[2023-11-29] VITALS (7 sets, daily range): BP systolic 119–134; BP diastolic 58–75; PULSE 75; BMI 39.9
[2023-11-29] MEDS: ULTRAM 50 MG PO (02:41)
[2023-11-29] MEDS: ANCEF 10 IV ×3 (04:01→20:06)
[2023-11-29] MEDS: DILAUDID 0.25 MG IV ×3 (04:01→13:14)
[2023-11-29] MEDS: FLUSH (NSS) 3 FLUSH IV (04:02)
[2023-11-29] MEDS: SYNTHROID 112 MCG PO (05:20)
--- NOTE | 2023-11-29 08:03 | W.PN.UPDATE ---
Update Note
Progress Note Update
Mr. Clark is POD5 left knee I&D and polyethylene liner exchange for [facility] under the direction of Dr. Powers. He is resting comfortably in bed this morning, but does endorse mild aching in the knee.
Directed exam of the left knee reveals ABDs in place without signs of drainage or bleeding. Expected post-operative edema throughout the left lower extremity. Calf soft and nontender. Neurovascularly intact distally.
Hgb 10.7 this AM. Cultures from left knee with MSSA. Repeat blood cx negative to date.
POD #5 s/p left knee I&D and liner exchange for PJI
-WBAT with walker
-PT/OT to tolerance
-Cultures growing Staph aureus (MSSA) - continue with Ancef. Blood Cx negative @ 48 hours- will follow for PICC placement.
-Appreciate ID recommendations with ABX direction.
-Xarelto for DVT ppx, or per primary.
-[place] to be removed in 2 weeks. Weekly inflammatory markers.
-F/u in office in 2 weeks for sierra out.
-Ortho will continue to follow while inpatient.
--- NOTE | 2023-11-29 08:25 | W.PN.HOSP.TC ---
Today's Communication/Plan
-
D/C planning in progress
Assessment / Plan
Assessment / Plan
Physical Exam
General: Comfortable and Conversant
HEENT: Anicteric and Moist mucous membranes
Respiratory: Clear and Non Labored Respirations
Cardiac: S1/S2 and Regular Rhythm
GI: Soft and Non Tender
Musculoskeletal: No Clubbing and No Cyanosis. Clean dressing around right knee, mild tenderness medially and incision L knee and post op findings.
Neuro: AAAOX3, he followed commands.
Psych: calm.
A/P:
# Sepsis POA , fever, leukocytosis, bacteremia, tachycardia
Right knee septic arthritis. X ray :Intact left total knee revision arthroplasty. Small to moderate knee joint effusion.
S/P left knee I&D and polyethylene liner exchange for PJI
Sepsis resolved
On IV antibiotics
Mild reactive leukocytosis-->repeat in am
Increase tramadol to 100 mg as needed
Hb 11.2 this morning
CM for d/c disposition
# Staph Aureus MSSA Bacteremia
Blood cultures 11/22-11/23 MSSA and from 11/24 till 11/25 with no growth
PICC line today
On IV Ancef
Source: septic arthritis. No heart device.
He denies respiratory/ GI symptoms. No toothache. His dog scratched his right wrist while ago.
He reported lower back pain that started 2-3 weeks ago but pain went down to his knees. Lumbar MRI ruled out discitis/ osteomyelitis/abscess.
Plan arrange for OP fdc abx
# Left knee Staph septic arthritis / Acute hematogenous infection, left total knee arthroplasty.
s/p Irrigation and debridement of left total knee arthroplasty with polyethylene liner exchange by Dr Powers 11/23.
s/p IV vancomycin & Rocephin. On IV 2 gm Q 8H Ancef.
Monitored temp curve, BP and WBC
Appreciate ortho input, s/p washout 11/23.
# Herpes infection of mouth
recurrent upon stress
Valtrex 2 mg BID for two doses.
#Chronic HFmrEF
No sob
No chest pain
-Echo Jun 2023: Global hypokinesis with EF 40-45%. Stage I diastolic dysfunction. Mild to moderate mitral regurgitation.
-Continue Jardiance
-Cont Metolazone, KCl, Furosemide.
-Monitored Daily Weight
# Mild hyponatremia
# Mild acute blood loss anemia
#Paroxysmal Atrial Fibrillation
-Continue dofetilide and metoprolol
- Cont Xarelto tonight
#Essential Hypertension
-Continue eplerenone, losartan and metoprolol
#Hypothyroidism
-Continue levothyroxine
#BPH
-Continue Finasteride
#Class III Obesity
-Affects all aspects of care
DVT proph: SCDs until able to resume Xarelto
Code Status: Full Code
Anticipated Discharge: Within 24 hours
Subjective/Interval History
-
Date of Service: November 29, 2023
Patient with knee pain not well controlled, no n/v/d. No fever.
Objective Data
-
Vital Signs:
Vital Signs
Temp Pulse Resp BP Pulse Ox
97.8 F 62 16 121/72 97
11/29/23 07:00 11/29/23 07:00 11/29/23 07:00 11/29/23 07:00 11/29/23 07:00
I&O
11/28/23 11/29/23 11/30/23
06:59 06:59 06:59
Intake Total 1560 / 1560 2009
Output Total 2900 / 2900 2700 / 2700
Balance -1340 / -1340 -690 / -690
[2023-11-29] MEDS: COZAAR 25 MG PO (08:52)
[2023-11-29] MEDS: TIKOSYN 250 MCG PO ×2 (08:52→20:06)
[2023-11-29] MEDS: ZYLOPRIM 100 MG PO ×2 (08:53→20:06)
[2023-11-29] MEDS: LASIX 80 MG PO ×2 (08:53→15:41)
[2023-11-29] MEDS: INSPRA 50 MG PO (08:53)
[2023-11-29] MEDS: JARDIANCE 10 MG PO (08:53)
[2023-11-29] MEDS: KCL 40 MEQ PO ×2 (08:53→20:06)
[2023-11-29] MEDS: TOPROL XL 50 MG PO ×2 (08:53→20:06)
[2023-11-29 09:51] LABS: % Basophils 0.3 % (0-2); % Eosinophils 0.6 % (0-6); % Immature Granulocytes 3.9 % (0-0.5); % Lymphocytes 11.8 % (20.5-51.1); % Monocytes 9.8 % (1.7-9.3); % Neutrophils 73.6 % (42.2-75.2); Absolute Eosinophils 0.1 10^3/uL (0-0.7); Absolute Immature Granulocytes 0.6 10^3/uL (0-0.05); Absolute Lymphocytes 1.7 10^3/uL (1.2-3.4); Absolute Monocytes 1.4 10^3/uL (0.1-0.6); Absolute Neutrophils 10.8 10^3/uL (1.4-6.5); Hematocrit 33.2 % (39.0-52.0); Hemoglobin 11.2 g/dL (13.0-18.0); Mean Corp Hgb Conc. 33.7 g/dL (33.0-37.0); Mean Corpuscular Hgb 31.9 pg (27.0-31.0); Mean Corpuscular Volume 94.6 fL (80.0-94.0); Mean Platelet Volume 9.7 fL (7.4-10.4); Nucleated Red Blood Cells % 0 % (-); Platelet Count 281 10^3/uL (130-400); Red Blood Cell Count 3.51 10^6/uL (4.70-6.10); Red Cell Dist. Width 15.6 % (11.5-14.5); White Blood Cell Count 14.7 10^3/uL (4.8-10.8)
[2023-11-29 10:09] LABS: Blood Urea Nitrogen 35 mg/dl (9-20); Calcium 9.1 mg/dl (8.4-10.2); Carbon Dioxide 30 mmol/L (22-30); Chloride 96 mmol/L (98-107); Estimated Creatinine Clearance 106 ml/min; Glucose 98 mg/dl (70-99); Potassium 4.4 mmol/L (3.5-5.1); Sodium 132 mmol/L (135-145); eGFR > 60.00
--- NOTE | 2023-11-29 11:01 | VATNOTE ---
11/28 RT SL 4FR PICC PLACED. Sterile technique. patient tolerated. TCL 47cm ECL0cm. Pressure dressing applied, to be redressed with biopatch tomorrow. X-ray ordered for placement confirmation.
--- NOTE | 2023-11-29 11:08 | CM ---
Addendum entered by Maryellen Howell 11/29/23 15:47:
Received message from Ashlee at [facility]
Medication Coverage - 80% coverage until OOP deductible of $1000 met - then covered at 100%
Called/text to Ashlee - pt had questions about billing - waiting for return call
Referral sent in [facility] to [facility] for home care needs
PICC line info faxed to [facility]
Plan - home with home infusion/HH
Original Note:
Case management following for d/c planning
Pt will need 6 week course of IV antibiotics
Spoke with Ashlee at [facility] [phone]
Clinicals, infusion sheet sent to Ashlee at [facility] via fax - [phone]
For PICC line placement today
Plan - home with home infusion/HH
[2023-11-29] MEDS: KCL 20 MEQ PO (13:03)
--- NOTE | 2023-11-29 13:42 | W.PN.ID1 ---
Date of Service
Date of Service: November 29, 2023
Today's Communication
Continue cefazolin.
Assessment / Plan
Left knee prosthetic joint infection
-s/p left knee I&D and liner exchange 11/24/23
Staph aureus bacteremia
Fever
Leukocytosis
Elevated CRP
Other Conditions
A-fib
Gout
CHF
HTN
Depression
Hx DVT
BPH
Recommendations:
s/p left knee I&D and liner exchange.
Lumbar MRI�no evidence of osteomyelitis,discitis, abscess. Blood cultures clear.
Continue cefazolin.
Staph aureus( MSSA) bacteremia from prior blood cultures. Source likely from left knee joint infection. No heart device.
PICC placed.
Will follow-up in the office in 2-3 weeks.
����������������������������������������������������������
Chief Complaint
-: Bacteremia and Other (Septic left knee joint)
Subjective / Review of Systems
Review of Systems: No Fever and No Chills
Vital Signs / Physical Exam
Vital Signs
Vital Signs
Temp Pulse Resp BP Pulse Ox
97.8 F 63 17 133/75 97
11/29/23 10:48 11/29/23 10:48 11/29/23 10:48 11/29/23 10:48 11/29/23 10:48
Physical Exam
Constitutional: No Acute Distress, Comfortable and Non-toxic
Eyes: Sclera Anicteric
Cardiovascular: S1/S2; Negative S3/S4 or Murmur
Pulmonary: Clear
Gastrointestinal: Soft, Non Tender, Non Distended and Normal Bowel Sounds
Extremities: Other (Left knee incision clean/dry/intact. Adeel in place. No periwound erythema.)
Skin: Warm and Dry
Neurological: Awake, Alert, Oriented and AO x 3
Lines: PICC (RUE)
Objective Data
Lab Data
Lab Results
11/29/23 08:52
11/29/23 08:52
ESR Cancelled 11/27/23 12:17
Estimated Creat Clear 106 ml/min 11/29/23 08:52
Lactic Acid 1.3 mmol/L (0.7-2.0) 11/23/23 11:18
Total Bilirubin 2.1 mg/dl (0.2-1.3) H 11/23/23 11:18
AST 28 U/L (17-59) 11/23/23 11:18
ALT 19 U/L (0-50) 11/23/23 11:18
Alkaline Phosphatase 70 U/L (38-126) 11/23/23 11:18
C-Reactive Protein 79.90 mg/L (0.0-10.00) H 11/27/23 08:49
Most recent labs reviewed.
Micro Results:
11/24/23 15:12 Tissue Culture - Final
Knee - Left S aureus-Methicillin Sensitive
Gram Stain - Final
11/24/23 15:12 Anaerobic Culture - Final
Knee - Left NO ANAEROBES ISOLATED
11/25/23 12:05 Blood Culture - Preliminary
Blood/Venous No Growth in 4 days- Final report to follow
11/26/23 11:15 Blood Culture - Preliminary
Blood/Venous No Growth in 72 hours- Final report to follow
11/24/23 08:58 Blood Culture - Preliminary
Blood/Venous S aureus-Methicillin Sensitive
Gram Stain - Preliminary
11/23/23 11:18 Blood Culture - Final
Blood/Venous S aureus-Methicillin Sensitive
Gram Stain - Final
11/23/23 13:59 Body Fluid Culture - Final
Joint Fluid S aureus-Methicillin Sensitive
Gram Stain - Final
Imaging:
11/23/2023 X-ray left knee: Intact left total knee revision arthroplasty. Small to moderate knee joint effusion noted.
--- NOTE | 2023-11-29 15:22 | W.PN.UPDATE ---
Update Note
Progress Note Update
In this patient's surgery I performed an excisional debridement using a 10 blade of a 9 inch long incision of devitelized and infected appearing subcutaneous tissue, muscle, fascia, synovial tissue and bone.
[2023-11-29] MEDS: ULTRAM 100 MG PO (15:59)
[2023-11-29] MEDS: XARELTO 20 MG PO (17:26)
[2023-11-30 03:00] VITALS: BP 128/74
[2023-11-30] MEDS: ANCEF 10 IV ×2 (03:28→12:18)
[2023-11-30] MEDS: FLUSH (NSS) 2 FLUSH IV (03:28)
[2023-11-30 05:04] LABS: % Basophils 0.2 % (0-2); % Eosinophils 0.9 % (0-6); % Lymphocytes 12.2 % (20.5-51.1); % Monocytes 10.4 % (1.7-9.3); % Neutrophils 72.3 % (42.2-75.2); Absolute Eosinophils 0.1 10^3/uL (0-0.7); Absolute Immature Granulocytes 0.6 10^3/uL (0-0.05); Absolute Lymphocytes 1.8 10^3/uL (1.2-3.4); Absolute Monocytes 1.6 10^3/uL (0.1-0.6); Absolute Neutrophils 10.9 10^3/uL (1.4-6.5); Hematocrit 31.8 % (39.0-52.0); Hemoglobin 10.7 g/dL (13.0-18.0); Mean Corp Hgb Conc. 33.6 g/dL (33.0-37.0); Mean Corpuscular Hgb 31.4 pg (27.0-31.0); Mean Corpuscular Volume 93.3 fL (80.0-94.0); Mean Platelet Volume 9.3 fL (7.4-10.4); Nucleated Red Blood Cells % 0 % (-); Platelet Count 302 10^3/uL (130-400); Red Blood Cell Count 3.41 10^6/uL (4.70-6.10); Red Cell Dist. Width 15.9 % (11.5-14.5); White Blood Cell Count 15.1 10^3/uL (4.8-10.8)
[2023-11-30] MEDS: ULTRAM 100 MG PO ×2 (05:22→16:08)
[2023-11-30] MEDS: SYNTHROID 112 MCG PO (05:22)
[2023-11-30 05:28] LABS: Blood Urea Nitrogen 36 mg/dl (9-20); Calcium 8.9 mg/dl (8.4-10.2); Carbon Dioxide 27 mmol/L (22-30); Chloride 97 mmol/L (98-107); Estimated Creatinine Clearance 106 ml/min; Glucose 130 mg/dl (70-99); Potassium 4.8 mmol/L (3.5-5.1); Sodium 132 mmol/L (135-145); eGFR > 60.00
[2023-11-30 06:00] VITALS: BMI 39.7
--- NOTE | 2023-11-30 07:08 | W.PN.ORTHO ---
Today's Communication / Plan
-
POD #6 s/p left knee I&D and liner exchange for PJI
-WBAT with walker
-PT/OT to tolerance
-Cultures growing Staph aureus (MSSA) - continue with Ancef. Blood Cx negative @ 48 hours- PICC placed
-Appreciate ID recommendations with ABX direction.
-Xarelto for DVT ppx, or per primary.
-Sierra to be removed in 2 weeks. Weekly inflammatory markers.
-F/u in office in 2 weeks for sierra out.
-Ortho will continue to follow while inpatient.
Assessment
.
Distal Motor Intact: Yes
Dressing:
Clean, dry and intact. Dressings remain Left knee
All things considered doing/feeling well
DNVI LLE
Assessment:
POD#6 Left knee I&D with linter exchange
Plan
.
Surgery / Date: November 23 L knee I&D, poly exchange (Vikoren)
DVT Prophylaxis: Other (per CM)
Activity:
Out of bed. WBAT LLE on walker
PT/OT
Discharge Plan: Other (per CM)
Subjective
.
.:
Patient resting comfortably. Did not respond to verbal stim, therefore DND
Vital Signs and Labs
.
Vital Signs and Labs:
Lab Results
11/30/23 04:31
11/30/23 04:31
Temp Pulse Resp BP Pulse Ox
97.9 F 61 18 128/74 98
11/30/23 03:00 11/30/23 03:00 11/30/23 03:00 11/30/23 03:00 11/30/23 03:00
[2023-11-30 07:39] VITALS: BP 122/65
--- NOTE | 2023-11-30 08:57 | W.PN.HOSP.TC ---
Today's Communication/Plan
-
Discharge planning today
Assessment / Plan
Assessment / Plan
Physical Exam
General: Comfortable and Conversant
HEENT: Anicteric and Moist mucous membranes
Respiratory: Clear and Non Labored Respirations
Cardiac: S1/S2 and Regular Rhythm
GI: Soft and Non Tender
Musculoskeletal: No Clubbing and No Cyanosis. Clean dressing around right knee, mild tenderness medially and incision L knee and post op findings.
Neuro: AAAOX3, he followed commands.
Psych: calm.
A/P:
# Sepsis POA , fever, leukocytosis, bacteremia, tachycardia
Right knee septic arthritis. X ray :Intact left total knee revision arthroplasty. Small to moderate knee joint effusion.
S/P left knee I&D and polyethylene liner exchange for PJI
Sepsis resolved
On IV antibiotics
Mild reactive leukocytosis-->repeat and still elevated but ID cleared him for d/c (pte afebrile) and monitor as outpatient
Increased tramadol to 100 mg as needed
Hb 10.7 this morning
CM for d/c disposition
Plan to discharge later today
# Staph Aureus MSSA Bacteremia
Blood cultures 11/22-11/23 MSSA and from 11/24 till 11/25 with no growth
PICC line today
On IV Ancef
Source: septic arthritis. No heart device.
He denies respiratory/ GI symptoms. No toothache. His dog scratched his right wrist while ago.
He reported lower back pain that started 2-3 weeks ago but pain went down to his knees. Lumbar MRI ruled out discitis/ osteomyelitis/abscess.
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
# Left knee Staph septic arthritis / Acute hematogenous infection, left total knee arthroplasty.
s/p Irrigation and debridement of left total knee arthroplasty with polyethylene liner exchange by Dr Powers 11/23.
s/p IV vancomycin & Rocephin. On IV 2 gm Q 8H Ancef.
Monitored temp curve, BP and WBC
Appreciate ortho input, s/p washout 11/23.
# Herpes infection of mouth
recurrent upon stress
Valtrex 2 mg BID for two doses.
#Chronic HFmrEF
No sob
No chest pain
-Echo Jun 2023: Global hypokinesis with EF 40-45%. Stage I diastolic dysfunction. Mild to moderate mitral regurgitation.
-Continue Jardiance
-Cont Metolazone, KCl, Furosemide.
-Monitored Daily Weight
# Mild hyponatremia
# Mild acute blood loss anemia
#Paroxysmal Atrial Fibrillation
-Continue dofetilide and metoprolol
- Cont Xarelto tonight
#Essential Hypertension
-Continue eplerenone, losartan and metoprolol
#Hypothyroidism
-Continue levothyroxine
#BPH
-Continue Finasteride
#Class III Obesity
-Affects all aspects of care
DVT proph: SCDs until able to resume Xarelto
Code Status: Full Code
Anticipated Discharge: Today
Subjective/Interval History
-
Date of Service: November 30, 2023
Patient with no new complaints. Afebrile. Pain better controlled
Objective Data
-
Labs:
Laboratory Results
11/30/23
04:31
WBC 15.1 H
Hgb 10.7 L
Hct 31.8 L
Plt Count 302
Sodium 132 L
Potassium 4.8
Chloride 97 L
Carbon Dioxide 27
BUN 36 H
Creatinine 0.9
Glucose 130 H
Calcium 8.9
Vital Signs:
Vital Signs
Temp Pulse Resp BP Pulse Ox
97.9 F 57 17 122/65 98
11/30/23 07:39 11/30/23 07:39 11/30/23 07:39 11/30/23 07:39 11/30/23 07:39
I&O
11/29/23 11/30/23 12/01/23
06:59 06:59 06:59
Intake Total 2009 1500 / 1500
Output Total 2700 / 2700 2550 / 2550
Balance -690 / -690 -1050 / -1050
--- NOTE | 2023-11-30 09:33 | CM ---
Addendum entered by Maryellen Howell 11/30/23 12:04:
Spoke with pt - given phone number for Ashlee from [facility] - to call her and discuss teaching needs/answer questions
Accepted by [facility] for PT needs
Has ride with family member at d/c
Discussed IMM
Plan - home with [facility] for home infusion - was teaching completed
and with [facility] for PT needs
Fax - [phone] - [facility]
Original Note:
Case management following for d/c planning
Per Ashlee at [facility] - plans to do teaching this PM
Medication to be delivered this PM
[2023-11-30] MEDS: LASIX 80 MG PO ×2 (09:34→16:11)
[2023-11-30] MEDS: KCL 40 MEQ PO (09:35)
[2023-11-30] MEDS: PROSCAR 5 MG PO (09:36)
[2023-11-30] MEDS: COZAAR 25 MG PO (09:36)
[2023-11-30] MEDS: ZYLOPRIM 100 MG PO (09:36)
[2023-11-30] MEDS: TOPROL XL PO (09:38)
[2023-11-30] MEDS: TIKOSYN 250 MCG PO (09:44)
[2023-11-30] MEDS: JARDIANCE 10 MG PO (09:44)
[2023-11-30] MEDS: INSPRA 50 MG PO (09:45)
[2023-11-30] MEDS: ZAROXOLYN 2.5 MG PO (09:48)
[2023-11-30 11:07] VITALS: BP 123/68
[2023-11-30] MEDS: KCL 20 MEQ PO (12:18)
--- NOTE | 2023-11-30 12:38 | W.DCSUMMARY ---
Discharge Summary
Discharge Data
Date of Admission: 11/23/23
Date of Discharge: 11/30/23
-
Pending Results: No
Hospital Course
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
with fever. Patient became bacteremic with MSSA and source was determined from left knee. Orthopedic and ID were consulted. He had septic arthritis of the left knee and orthopedic took him to the OR and did irrigation and debridement of left
total knee arthroplasty with polyethylene liner exchange on 11/23. He was placed on IV antibiotics per ID guidance and blood cultures cleared since 11/24. Patient did well rest of the hospital stay. He is hemodynamically stable and afebrile. ID
has cleared him for discharge with long-term IV antibiotics. Orthopedic has cleared him as well. He will be discharged in stable condition today.
Discharge duration: 36 minutes
Discharge Plan
-
Patient Disposition: Home with Home Care
Discharge Diagnosis/Procedures: Septic arthritis left knee prosthetic joint. Methicillin sensitive Staphylococcus aureus bacteremia.
Condition: Good
Diet: Low Cholesterol
Activity: As tolerated
Blood Work: Please PCP to order CBC, BMP within 1 week
Referrals:
Alan Bustillos DO [Active] - in two to four weeks
Rod Ludwig MD [Family Provider] - in less than 1 week
Wolfgang Powers MD [Active] - in two to four weeks
Prescriptions:
New
acetaminophen 325 mg Tablet
650 mg PO Q4HPRN PRN (Reason: mild pain/ fever>100.5F) Qty: 0 0RF
cefazolin 10 gram Recon Soln
2 g IV Q8H 42 Days Qty: 0 0RF
tramadol 50 mg Tablet
100 mg PO Q8HPRN PRN (Reason: mod to severe pain) Qty: 14 0RF
polyethylene glycol 3350 [Miralax] 17 gram powder in packet
17 g PO DAILY Qty: 14 0RF
Continued
allopurinol 100 MG tablet
100 mg PO BID
finasteride 5 MG tablet
5 mg PO Q48H
nitroglycerin 0.4 MG tablet, sublingual
0.4 mg sublingual Q5MX3 PRN (Reason: chest pain)
levothyroxine [Synthroid] 112 MCG tablet
112 mcg PO DAILY
ascorbic acid (vitamin C) [Vitamin C] 500 MG tablet
1,000 mg PO DAILY
potassium chloride [Klor-Con M20] 20 mEq tablet,ER particles/crystals
40 meq PO BID
furosemide 80 mg tablet
80 mg PO BID
losartan 25 MG tablet
25 mg PO DAILY
metolazone 2.5 mg Tablet
2.5 mg PO TUTHSA
dofetilide 250 mcg capsule
250 mcg PO Q12H
zinc sulfate 50 mg zinc (220 mg) Tablet
50 mg PO DAILY
potassium chloride 20 mEq Tablet,Er Particles/Crystals
20 meq PO NOON
ketoconazole 2 % Cream
1 applic TOPICAL BID
Patient Comments:
11/23/23: started 11/05/23, to apply twice a day for 30 days
eplerenone 50 mg Tablet
50 mg PO DAILY
Vitamin D3 Complete 18 mg iron-800 mcg-150 mg Tablet
1 tab PO DAILY
Jardiance 10 mg Tablet
10 mg PO DAILY
metoprolol succinate [Toprol XL] 50 mg tablet extended release 24 hr
50 mg PO BID
Xarelto 20 MG tablet
20 mg PO QPM
Discontinued
acetaminophen 650 mg Tablet Extended Release
1,300 mg PO [id number] PRN (Reason: mild pain)
Discharge Orders:
Discharge Patient (As Directed); Ordered 11/30/23
Ordered By: Freddy Hurst
Discharge Date and Time
Discharge Date/Time: 11/30/23 17:06
Print Language: NAMIBIAN
[2023-11-30 15:35] VITALS: BP 132/71
--- NOTE | 2023-11-30 17:11 | W.PN.ID1 ---
Date of Service
Date of Service: November 30, 2023
Today's Communication
Continue antibiotics
Assessment / Plan
Left knee prosthetic joint infection
-s/p left knee I&D and liner exchange 11/24/23
Staph aureus bacteremia
Fever
Leukocytosis
Elevated CRP
Other Conditions
A-fib
Gout
CHF
HTN
Depression
Hx DVT
BPH
Recommendations:
Lumbar MRI�no evidence of osteomyelitis,discitis, abscess. Blood cultures clear.
Continue cefazolin.
Staph aureus( MSSA) bacteremia from prior blood cultures. Source likely from left knee joint infection.
Will follow-up in the office in 2-3 weeks.
����������������������������������������������������������
Chief Complaint
-: Bacteremia and Other (Septic left knee joint)
Subjective / Review of Systems
Review of Systems: No Fever and No Chills
Vital Signs / Physical Exam
Vital Signs
Vital Signs
Temp Pulse Resp BP Pulse Ox
98.2 F 91 18 132/71 98
11/30/23 15:35 11/30/23 16:11 11/30/23 11:07 11/30/23 16:11 11/30/23 11:07
Physical Exam
Constitutional: No Acute Distress, Comfortable and Non-toxic
Eyes: Sclera Anicteric
Pulmonary: Non Labored
Extremities: Other (Left knee incision clean/dry/intact. Adeel in place. No periwound erythema. No tenderenss.)
Skin: Warm and Dry
Neurological: Awake, Alert and Oriented
Lines: PICC (RUE)
Objective Data
Lab Data
Lab Results
11/30/23 04:31
11/30/23 04:31
ESR Cancelled 11/27/23 12:17
Estimated Creat Clear 106 ml/min 11/30/23 04:31
Lactic Acid 1.3 mmol/L (0.7-2.0) 11/23/23 11:18
Total Bilirubin 2.1 mg/dl (0.2-1.3) H 11/23/23 11:18
AST 28 U/L (17-59) 11/23/23 11:18
ALT 19 U/L (0-50) 11/23/23 11:18
Alkaline Phosphatase 70 U/L (38-126) 11/23/23 11:18
C-Reactive Protein 79.90 mg/L (0.0-10.00) H 11/27/23 08:49
Most recent labs reviewed.
Micro Results:
11/25/23 12:05 Blood Culture - Final
Blood/Venous No Growth - Final Report
11/26/23 11:15 Blood Culture - Preliminary
Blood/Venous No Growth in 4 days- Final report to follow
11/24/23 15:12 Tissue Culture - Final
Knee - Left S aureus-Methicillin Sensitive
Gram Stain - Final
11/24/23 15:12 Anaerobic Culture - Final
Knee - Left NO ANAEROBES ISOLATED
11/24/23 08:58 Blood Culture - Preliminary
Blood/Venous S aureus-Methicillin Sensitive
Gram Stain - Preliminary
11/23/23 11:18 Blood Culture - Final
Blood/Venous S aureus-Methicillin Sensitive
Gram Stain - Final
11/23/23 13:59 Body Fluid Culture - Final
Joint Fluid S aureus-Methicillin Sensitive
Gram Stain - Final
Imaging:
11/23/2023 X-ray left knee: Intact left total knee revision arthroplasty. Small to moderate knee joint effusion noted.
== END 2023-11-30 17:06 | disposition home health service (06) | DRG 463 ==
LOC: 3 WEST ACU 15:45
PROVIDERS: Physician Assistant; Physician Assistant Medical; Physician Assistant Surgical; ADMITTING PHYSICIAN Internal Medicine; ATTENDING PHYSICIAN Hospitalist; CONSULT PHYSICIAN Orthopaedic Surgery; CONSULT PHYSICIAN Student in an Organized Health Care Education/Training Program; EMERGENCY PHYSICIAN Emergency Medicine; FAMILY PHYSICIAN Family Medicine
PROC: 0SUW09Z Supplement Left Knee Joint, Tibial Surface with Liner, Open Approach (ICD-10-PCS; 2023-11-24)
PROC: 0JBP0ZZ Excision of Left Lower Leg Subcutaneous Tissue and Fascia, Open Approach (ICD-10-PCS; 2023-11-24)
PROC: 0SPD09Z Removal of Liner from Left Knee Joint, Open Approach (ICD-10-PCS; 2023-11-24)
DX: T84.54XA Infection and inflammatory reaction due to internal left knee prosthesis, initial encounter (principal); A41.01 Sepsis due to Methicillin susceptible Staphylococcus aureus; I50.22 Chronic systolic (congestive) heart failure; Z68.41 Body mass index [BMI] 40.0-44.9, adult; D62 Acute posthemorrhagic anemia; E87.1 Hypo-osmolality and hyponatremia; B00.2 Herpesviral gingivostomatitis and pharyngotonsillitis; I11.0 Hypertensive heart disease with heart failure; E66.01 Morbid (severe) obesity due to excess calories; Y83.1 Surgical operation with implant of artificial internal device as the cause of abnormal reaction of the patient, or of later complication, without mention of misadventure at the time of the procedure; I34.0 Nonrheumatic mitral (valve) insufficiency; I48.0 Paroxysmal atrial fibrillation; E03.9 Hypothyroidism, unspecified; N40.0 Benign prostatic hyperplasia without lower urinary tract symptoms
CPT/HCPCS: 71045; 71046; 72158; 73560; 80048; 80053; 83036; 83605; 85025; 85027; 85652; 86140; 86618; 87015; 87040; 87070; 87075; 87147; 87150; 87176; 87186; 87205; 87811; 89051; 89060; 93005; 96361; 96374; 97116; 97162; 97166; 97530; 97535; 99285; A9575; C1776

== ENCOUNTER 2024-01-27 10:00 | Outpatient (RCR) | payer BC, SELFPAY | END 2024-01-27 23:59 | disposition home or self-care (01) | LOC: RPT 10:00 | PROVIDERS: ATTENDING PHYSICIAN Physician Assistant Medical; FAMILY PHYSICIAN Family Medicine | DX: Z47.89 Encounter for other orthopedic aftercare (principal); T84.54XD Infection and inflammatory reaction due to internal left knee prosthesis, subsequent encounter; Z73.6 Limitation of activities due to disability; R26.89 Other abnormalities of gait and mobility; M25.562 Pain in left knee | CPT/HCPCS: 97010; 97110; 97162; 97530 ==

== ENCOUNTER 2024-02-25 11:07 | Outpatient (RCR) | payer BC, SELFPAY | END 2024-02-25 23:59 | disposition home or self-care (01) | LOC: RPT 11:07 | PROVIDERS: ATTENDING PHYSICIAN Physician Assistant Medical; FAMILY PHYSICIAN Family Medicine | DX: T84.54XD Infection and inflammatory reaction due to internal left knee prosthesis, subsequent encounter (principal); X58.XXXD Exposure to other specified factors, subsequent encounter; Z73.6 Limitation of activities due to disability | CPT/HCPCS: 97010; 97110; 97112; 97530 ==

== ENCOUNTER → 2024-03-07 11:28 | Outpatient (REF) | payer BC, SELFPAY | LOC: HWEVLT 11:28 | PROVIDERS: ATTENDING PHYSICIAN Radiology Diagnostic Radiology | DX: I83.891 Varicose veins of right lower extremity with other complications (principal) | CPT/HCPCS: 36471 ==

== ENCOUNTER 2024-03-16 11:00 | Outpatient (RCR) | payer BC, SELFPAY | END 2024-03-16 13:07 | disposition home or self-care (01) | LOC: RPT 11:00 | PROVIDERS: ATTENDING PHYSICIAN Physician Assistant Medical; FAMILY PHYSICIAN Family Medicine | DX: T84.54XD Infection and inflammatory reaction due to internal left knee prosthesis, subsequent encounter (principal); Z73.6 Limitation of activities due to disability | CPT/HCPCS: 97010; 97110; 97112; 97530 ==

== ENCOUNTER 2024-09-30 09:18 | Emergency (ER) | payer BC, SELFPAY ==
[2024-09-30 09:21] VITALS: BP 143/80
[2024-09-30 10:26] VITALS: BMI 26.8
--- NOTE | 2024-09-30 10:26 | ED.SKININJ ---
HPI-Injury
General
Chief Complaint: Skin Surface Trauma
Source: patient
Exam Limitations: none
Time Seen by Provider: 09/30/24 09:44
History of Present Illness-Injury
Initial Injury comments:
69-year-old male presents with bleeding varicose vein to the left lower extremity. This started this morning he was unable to get stop bleeding. Is on Xarelto. No other complaints at this time
Past History
Past History
ED Past Medical History: Arrthythmia (Atrial fibrillation), CHF, HTN, Psychiatric (Depression) and Other (DVT, BPH, Hematuria, Chronic right leg lymphedema); Negative Asthma, CAD or Cancer
ED Past Surgical History: Appendectomy and Orthopedic (Chas knee replacements)
Social History
Tobacco: Former smoker
Alcohol: Occasional
Drug: None
Personal:
Living: with family
Employment: Employed
Family History
Family History: Hypertension
Phy Exam
Physical Exam
Physical Exam:
General: Well-appearing male no acute distress
Skin: Small varicosity noted left lower extremity with mild bleeding. No surrounding erythema
Course
Vital Signs
Initial and Last Documented VS:
Initial Vital Signs
Temp Pulse Resp BP Pulse Ox
98.5 F 54 16 143/80 99
09/30/24 09:21 09/30/24 09:21 09/30/24 09:21 09/30/24 09:21 09/30/24 09:21
Last Documented Vital Signs
Temp Pulse Resp BP Pulse Ox
98.5 F 54 16 143/80 99
09/30/24 09:21 09/30/24 09:21 09/30/24 09:21 09/30/24 09:21 09/30/24 09:21
MDM/Problems Addressed
Differential Diagnosis Includes:
Bleeding varicosity left lower extremity. Attempt was made a direct pressure for several minutes however this was not stopping the blood. The area was nice as of lidocaine with epinephrine and 5-0 Vicryl was used in a [id number] fashion
around the varicosity to provide hemostasis. A dressing was applied with surgical foam and gauze wrap for continued pressure.
*Critical Care Note
Total Time (30-74mins, 75-104mins- exclusive of procedures): Not Applicable
Update Note
Update Note:
Patient observed for an extended period time after the sutures are placed. No further bleeding from the varicosity. Dressing applied stable for discharge
ED Attending Note
-
Portions of this chart may have been created with voice recognition software.� Occasional wrong word or��sound alike� substitutions may have occurred due to the inherent limitations of voice recognition software.
Discharge Plan
Departure
Patient Disposition: Home (Routine Discharge)
Date of Disposition: 09/30/24
Time of Disposition: 11:59
Patient with high blood pressure during this ER visit?: No
Discharge Problem:
Bleeding from varicose vein
Instructions: Laceration Repair With Stitches (DC)
Prescriptions:
No Action
allopurinol 100 MG tablet
100 mg PO BID
finasteride 5 MG tablet
5 mg PO Q48H
nitroglycerin 0.4 MG tablet, sublingual
0.4 mg sublingual Q5MX3 PRN (Reason: chest pain)
levothyroxine [Synthroid] 112 MCG tablet
112 mcg PO DAILY
ascorbic acid (vitamin C) [Vitamin C] 500 MG tablet
1,000 mg PO DAILY
potassium chloride [Klor-Con M20] 20 mEq tablet,ER particles/crystals
40 meq PO BID
furosemide 80 mg tablet
80 mg PO BID
losartan 25 MG tablet
25 mg PO DAILY
metolazone 2.5 mg Tablet
2.5 mg PO TUTHSA
dofetilide 250 mcg capsule
250 mcg PO Q12H
zinc sulfate 50 mg zinc (220 mg) Tablet
50 mg PO DAILY
potassium chloride 20 mEq Tablet,Er Particles/Crystals
20 meq PO NOON
ketoconazole 2 % Cream
1 applic TOPICAL BID
Patient Comments:
11/23/23: started 11/05/23, to apply twice a day for 30 days
eplerenone 50 mg Tablet
50 mg PO DAILY
Vitamin D3 Complete 18 mg iron-800 mcg-150 mg Tablet
1 tab PO DAILY
Jardiance 10 mg Tablet
10 mg PO DAILY
metoprolol succinate [Toprol XL] 50 mg tablet extended release 24 hr
50 mg PO BID
Xarelto 20 MG tablet
20 mg PO QPM
acetaminophen 325 mg Tablet
650 mg PO Q4HPRN PRN (Reason: mild pain/ fever>100.5F) Qty: 0 0RF
tramadol 50 mg Tablet
100 mg PO Q8HPRN PRN (Reason: mod to severe pain) Qty: 14 0RF
polyethylene glycol 3350 [Miralax] 17 gram powder in packet
17 g PO DAILY Qty: 14 0RF
Referrals:
Rod Ludwig MD [Family Provider, Family Practice]
Activity Restrictions/Additional Instructions:
Keep dressing on for today. The sutures will dissolve on their own. Return if worse otherwise
Interventions
Interventions:
*Risk Screen - Suicide Last Done: 09/30/24 10:26
*General Assessment Last Done: 09/30/24 10:26
*Neglect/Abuse Screening Last Done: 09/30/24 10:26
*ED- Fall Risk Assessment Last Done: 09/30/24 10:26
*ED COVID-19 Vaccine History Last Done: 09/30/24 10:26
ED-Skin Assessment Last Done: 09/30/24 10:26
Discharge Date and Time
Print Language: ALBANIAN
[2024-09-30 12:32] VITALS: BP 139/81
== END 2024-09-30 12:33 | disposition home or self-care (01) ==
LOC: EMR 09:18
PROVIDERS: EMERGENCY PHYSICIAN Student in an Organized Health Care Education/Training Program; FAMILY PHYSICIAN Family Medicine
DX: I83.892 Varicose veins of left lower extremity with other complications (principal); I48.91 Unspecified atrial fibrillation; I11.0 Hypertensive heart disease with heart failure; I50.9 Heart failure, unspecified; F32.A Depression, unspecified; N40.0 Benign prostatic hyperplasia without lower urinary tract symptoms; Z79.01 Long term (current) use of anticoagulants; Z82.49 Family history of ischemic heart disease and other diseases of the circulatory system; Z86.718 Personal history of other venous thrombosis and embolism; Z87.891 Personal history of nicotine dependence; Z90.49 Acquired absence of other specified parts of digestive tract; Z96.653 Presence of artificial knee joint, bilateral
CPT/HCPCS: 99282

== ENCOUNTER 2024-12-11 07:01 | Day surgery (SDC) | payer BC, SELFPAY ==
[2024-12-11 08:15] VITALS: BMI 45.0
== END 2024-12-11 10:03 | disposition home or self-care (01) ==
LOC: CATH 07:01
PROVIDERS: ATTENDING PHYSICIAN Internal Medicine Cardiovascular Disease; FAMILY PHYSICIAN Family Medicine; OTHER PHYSICIAN Internal Medicine Cardiovascular Disease
DX: I48.19 Other persistent atrial fibrillation (principal); I11.0 Hypertensive heart disease with heart failure; I50.22 Chronic systolic (congestive) heart failure; I42.8 Other cardiomyopathies; I25.10 Atherosclerotic heart disease of native coronary artery without angina pectoris; E78.00 Pure hypercholesterolemia, unspecified; G47.30 Sleep apnea, unspecified; E05.90 Thyrotoxicosis, unspecified without thyrotoxic crisis or storm; E66.9 Obesity, unspecified; Z68.41 Body mass index [BMI] 40.0-44.9, adult; Z87.891 Personal history of nicotine dependence; Z86.718 Personal history of other venous thrombosis and embolism; Z79.84 Long term (current) use of oral hypoglycemic drugs; Z79.01 Long term (current) use of anticoagulants
CPT/HCPCS: 92960; 93005

== ENCOUNTER → 2025-01-04 12:57 | Outpatient (REF) | payer BC, SELFPAY | LOC: RCS 12:57 | PROVIDERS: ATTENDING PHYSICIAN Internal Medicine Cardiovascular Disease; FAMILY PHYSICIAN Family Medicine | DX: I50.22 Chronic systolic (congestive) heart failure (principal) | CPT/HCPCS: 93306 ==

== ENCOUNTER → 2025-01-11 10:02 | Outpatient (REF) | payer BC, SELFPAY | LOC: RAD 10:02 | PROVIDERS: ATTENDING PHYSICIAN Internal Medicine Cardiovascular Disease; FAMILY PHYSICIAN Family Medicine | DX: I50.22 Chronic systolic (congestive) heart failure (principal) | CPT/HCPCS: 75572; Q9967 ==

== ENCOUNTER → 2025-01-15 08:13 | Outpatient (REF) | payer BC, SELFPAY | LOC: HWRCS 08:13 | PROVIDERS: ATTENDING PHYSICIAN Internal Medicine Cardiovascular Disease; FAMILY PHYSICIAN Family Medicine | DX: I50.22 Chronic systolic (congestive) heart failure (principal); I42.8 Other cardiomyopathies; I25.10 Atherosclerotic heart disease of native coronary artery without angina pectoris | CPT/HCPCS: 78452; 93017; A9500; J2785 ==

== ENCOUNTER 2025-03-05 08:09 | Day surgery (SDC) | payer BC, SELFPAY ==
[2025-02-20 10:47] LABS: Hematocrit 41.2 % (39.0-52.0); Hemoglobin 13.4 g/dL (13.0-18.0); Mean Corp Hgb Conc. 32.5 g/dL (33.0-37.0); Mean Corpuscular Volume 89.6 fL (80.0-94.0); Nucleated Red Blood Cells % 0 % (-); Platelet Count 204 10^3/uL (130-400); Red Cell Dist. Width 17.8 % (11.5-14.5)
[2025-02-20 11:00] LABS: INR 2.81; PT 29.5 Sec (11.4-14.6)
[2025-02-20 11:15] LABS: ALT (SGPT) 28 U/L (0-50); AST (SGOT) 37 U/L (17-59); Albumin 4.2 g/dl (3.5-5.0); Alkaline Phosphatase 63 U/L (38-126); Blood Urea Nitrogen 37 mg/dl (9-20); Calcium 9.3 mg/dl (8.4-10.2); Carbon Dioxide 29 mmol/L (22-30); Chloride 100 mmol/L (98-107); Glucose 88 mg/dl (70-99); Magnesium 1.9 mg/dl (1.6-2.3); Potassium 3.7 mmol/L (3.5-5.1); Sodium 133 mmol/L (135-145); Total Protein 7.2 g/dl (6.3-8.2); eGFR > 60.00
[2025-02-20 13:32] VITALS: BMI 44.2
[2025-03-05] VITALS (10 sets, daily range): BP systolic 101–127; BP diastolic 60–107; BMI 40.5
[2025-03-05 11:14] LABS: ACT-LR - POC 318 Seconds (116-155)
[2025-03-05 13:38] LABS: ACT-LR - POC 329 Seconds (116-155)
--- NOTE | 2025-03-05 14:01 | ITS.CL.ABL ---
[employer] - Ablation
Ablation
Procedure Report:
ELECTROPHYSIOLOGIC STUDY AND POSSIBLE ABLATION
DATE: March 05, 2025
Primary Care Provider: Dr. Rod Ludwig
Primary Director Print: Dr. Arturo Reeves
INDICATION:
Symptomatic Atrial Fibrillation.
Persistent
HISTORY: See H and P.
Prior PVI 2018
Symptomatic AF, poorly controlled with attempted medical therapy.
He has symptomatic persistent atrial fibrillation. He had recurrences despite antiarrhythmic drug therapy with dofetilide followed by cardioversion. Previously he had developed hyperthyroidism on amiodarone.
Additionally has heart failure with reduced ejection fraction.
Contributing factors to recurrent atrial fibrillation include obstructive sleep apnea as well as morbid obesity.
HAS-BLED: 1
Age
CHADSVASc: 3
CHF, NYHA Class 2, LVEF 25-30%
HTN
Age
PRESENTING RHYTHM: AF
HISTORY: See H and P.
Symptomatic AF, poorly controlled with attempted medical therapy.
ANTICOAGULATION: Xarelto 20 mg daily
'TIME-OUT': called and confirmed.
SEDATION/ANESTHESIA: provided via the anesthesia department using general anesthesia.
PROCEDURE:
Ultrasound Guidance with real-time visualization of needle insertion and vessel patency performed by nc for femoral venous Vascular Access.
Under real-time US guidance, the needle was advanced with negative pressure into the vein. The needle was seen entering the vessel lumen with a good return of dark red flow, the syringe was removed, non-pulsatile, dark red blood low was noted and
the wire was passed without difficulty, then the needle was removed. US confirmed the wire was in the vein, not going into an artery,
Images were taken and saved for the patient's permanent record. Imaging findings typical femoral venous anatomy. Direct visualization of needle puncture into the femoral vein was observed and recorded.
3 sheaths were inserted into the right femoral vein.
10 Fr, 10Fr, 7 Fr. A 10fr sheath was then exchanged for the 16.8 Fr Faradrive deflectable sheath and dilator over a wire.
A decapolar CS catheter was positioned within the CS for mapping and pacing.
The intracardiac ultrasound catheter was positioned in the RA for continuous intracardiac ultrasound imaging.
Heparin bolus and infusion to target ACT at 300 -350 seconds was administered. Transseptal puncture was performed. This entailed advancing a sheath with dilator into the superior vena cava and withdrawing both (monitoring intracardiac ultrasound,
fluoroscopy and tip pressure) with the tip oriented toward the atrial septum. The fossa ovalis was engaged (indicated by sudden displacement of the sheath tip as well as tenting of the fossa seen on intracardiac ultrasound).
The [employer] transseptal system utilizing VersaCross RF was used. Left atrial catheter position was confirmed by echocardiographic imaging and fluoroscopy followed by RF delivery using the Flypaper system resulting in successful LA access with
pressure monitoring demonstrating LA pressure waveforms (LA mean pressure 9 mm Hg). The Faradrive sheath was advanced over the dilator and positioned in the left atrium.
The Jean Grid multipolar mapping catheter was initially positioned through the transseptal sheath for high density mapping.
Cardioversion resulted in sinus rhythm.
Geometry and voltage mapping was performed using the Jean multipolar grid catheter. Ensite-X was utilized for three-dimensional electroanatomical mapping.
A 3-D map was created using Ensite-X in Voxel mode. A 3-D reconstructed CT image was compared to the 3-D Navex map to assist in anatomic evaluation, mapping and ablation.
The ShoptimiseapInhale Digital PFA catheter and system was used for cardiac ablation. Catheter positioning was guided and confirmed using both I.C.E. and fluoroscopy.
Ablation strategy included PVI as well as mapping for extra PV contributors to atrial fibrillation which would also be targeted if present.
High density electroanatomical three-dimensional mapping demonstrated four PVs: LSPV, LIPV, RSPV, RIPV.
Mapping finds reconnection of the left superior pulmonary vein towards its inferior septal quadrant as well as connection of the right superior pulmonary vein towards its superior septal quadrant.
Pulse electric field energy was delivered to isolate the pulmonary veins.
After accomplishing pulmonary venous isolation, mapping identified additional areas likely to be extra PV contributors to atrial fibrillation. These areas demonstrated patchy low voltage as well as complex fractionated electrograms. These areas can
be sites for the formation of rotors which can drive and maintain atrial fibrillation. These areas are known to be significant contributors to initiation and perpetuation of atrial fibrillation.
Additional energy applications/additional ablation sets targeted extra PV contributors to atrial fibrillation.
Targets for additional PFA ablation included:
LA posterior wall targeted with pulsed electric field energy isolating the posterior wall of the left atrium
After ablation of the posterior wall, additional targets were addressed:
LA inferior floor
These areas were ablated using pulsed electric field energy eliminating the extra PV contributors to atrial fibrillation.
Post ablation mapping finds entrance and exit block at each of the pulmonary veins, the LA posterior wall and at the additional line at Inferior/floor of the LA rendering the sites no longer able to contribute to atrial fibrillation.
Programmed electrostimulation including burst atrial pacing as well the delivery of decremental extrastimuli down to atrial effective refractory period and no sustained arrhythmias could be induced.
I.C.E. :
Pre-Ablation Post-Ablation
LVEF: 15 % 20 %
WMA: none none
Pericardial effusion: none none
LA Pressure (mmHg) 9 13
COMPLICATIONS:
none
SUMMARY:
- Mapping and ablation to isolate the PVs resulting in electrical isolation of the pulmonary veins
- Additional AF ablation sets X 2 after PVI (LA posterior wall, Inf/floor of the LA posterior wall) resulting in elimination of the targeted extra PV contributors to atrial fibrillation.
- 3-D Electroanatomical Mapping
- Intracardiac Ultrasound
- Ultrasound guidance for vascular access
RECOMMENDATIONS:
- Observe in monitored bed.
- Maintain oral anticoagulation.
- Office visit with Dr. Arturo Reeves is scheduled for April 03, 2025
Copy to:
Primary Care Provider: Dr. Rod uLdwig
Primary Director Print: Dr. Arturo Reeves
--- NOTE | 2025-03-05 15:05 | W.PN.UPDATE ---
Update Note
Progress Note Update
Pt seen post PFA. Right groin site without ht/bleeding. Post EKG SB w/PACs, 50s. Resume xarelto tonight at usual time. Will discontinue digoxin. Decrease metoprolol to 25mg BID as HR has been bradycardic since cardioversion in the EP lab post
ablation. Followup with Dr. Reeves in 1 month as scheduled. Home later today if groin site/tele remain stable.
== END 2025-03-05 16:27 | disposition home or self-care (01) ==
LOC: CATH 08:09
PROVIDERS: ATTENDING PHYSICIAN Internal Medicine Cardiovascular Disease; FAMILY PHYSICIAN Family Medicine; OTHER PHYSICIAN Internal Medicine Cardiovascular Disease
DX: I48.19 Other persistent atrial fibrillation (principal); I11.0 Hypertensive heart disease with heart failure; I50.22 Chronic systolic (congestive) heart failure; E66.01 Morbid (severe) obesity due to excess calories; Z68.41 Body mass index [BMI] 40.0-44.9, adult; E78.5 Hyperlipidemia, unspecified; Z87.891 Personal history of nicotine dependence; M19.90 Unspecified osteoarthritis, unspecified site; I42.9 Cardiomyopathy, unspecified; E03.9 Hypothyroidism, unspecified; M10.9 Gout, unspecified; N40.0 Benign prostatic hyperplasia without lower urinary tract symptoms; Z86.72 Personal history of thrombophlebitis; G47.33 Obstructive sleep apnea (adult) (pediatric); Z79.899 Other long term (current) drug therapy; Z79.890 Hormone replacement therapy; Z79.01 Long term (current) use of anticoagulants; Z79.85 Long-term (current) use of injectable non-insulin antidiabetic drugs; E05.90 Thyrotoxicosis, unspecified without thyrotoxic crisis or storm; I25.10 Atherosclerotic heart disease of native coronary artery without angina pectoris; Z86.19 Personal history of other infectious and parasitic diseases; I45.4 Nonspecific intraventricular block; Z86.718 Personal history of other venous thrombosis and embolism; Z96.653 Presence of artificial knee joint, bilateral
CPT/HCPCS: C1894; C1730; C1769; C1892; 36415; 80053; 83735; 85025; 85347; 85610; 86850; 86900; 86901; 93005; 93656; 93657; C1732; C1733; C1766

== ENCOUNTER 2025-03-05 23:11 | Emergency (ER) | payer BC, SELFPAY ==
[2025-03-05 23:16] VITALS: BP 144/78
--- NOTE | 2025-03-05 23:55 | ED.GENMED ---
History of Present Illness
General
Chief Complaint: Post Operative Problem(s)
Source: patient and family (son)
Time Seen by Provider: 03/05/25 23:45
History of Present Illness
History of Present Illness:
69-year-old male presents to the emergency room concerned he is having bleeding from his right groin procedure site. Patient had an ablation today. He noted that the dressing had become red. Concerned he was having excessive bleeding. No other
complaints. Patient did resume his anticoagulation when he get home today.
Past History
Past History
ED Past Medical History: Arrthythmia (Atrial fibrillation), CHF, HTN, Psychiatric (Depression) and Other (DVT, BPH, Hematuria, Chronic right leg lymphedema); Negative Asthma, CAD or Cancer
ED Past Surgical History: Appendectomy and Orthopedic (Chas knee replacements)
Social History
Tobacco: Former smoker
Alcohol: Occasional
Drug: None
Personal:
Living: with family
Employment: Employed
Family History
Family History: Hypertension
Phy Exam
Physical Exam
Physical Exam:
General: Awake, Alert, Oriented X3. No acute distress.
Vitals: unremarkable
Head: Atraumatic
Eyes: Pupils equal, EOMI
Throat: Airway intact, no exudates
Neck: Trachea midline
Lungs: Clear and equal b/l
Heart: Regular rate, no murmurs
Abd: Soft, Nontender, No pulsatile mass
Neuro: Nonfocal
Skin: Warm, dry, no rash
Extremities: pulses equal b/l, no edema. Right groin puncture site covered with gauze and a clear dressing. Because his pink but not actually saturated. No hematoma or pulsatile mass noted.
Course
Vital Signs
Initial and Last Documented VS:
Initial Vital Signs
Temp Pulse Resp BP Pulse Ox
97.8 F 68 22 144/78 96
03/05/25 23:16 03/05/25 23:16 03/05/25 23:16 03/05/25 23:16 03/05/25 23:16
Last Documented Vital Signs
Temp Pulse Resp BP Pulse Ox
97.8 F 62 18 112/75 96
03/05/25 23:16 03/06/25 00:00 03/06/25 00:00 03/06/25 00:00 03/06/25 00:00
MDM/Problems Addressed
MDM/Problems Addressed:
Dressing removed. No significant bleeding from the site. New dressing applied and sandbag placed. Will recheck in 30 minutes.
Dressing intact. Minimal bleeding. Stable for discharge home
*Pulse Oximetry
SaO2: 96
Oxygen Mode of Delivery: Room air
Patient hypoxic: no
*Critical Care Note
Total Time (30-74mins, 75-104mins- exclusive of procedures): Not Applicable
ED Attending Note
-
Portions of this chart may have been created with voice recognition software.� Occasional wrong word or��sound alike� substitutions may have occurred due to the inherent limitations of voice recognition software.
Discharge Plan
Departure
Patient Disposition: Home (Routine Discharge)
Date of Disposition: 03/06/25
Time of Disposition: 01:01
Patient with high blood pressure during this ER visit?: No
Condition: Good
Discharge Problem:
Post-op bleeding
Instructions: Bleeding After Surgery
Prescriptions:
No Action
allopurinol 100 MG tablet
100 mg PO BID
nitroglycerin 0.4 MG tablet, sublingual
0.4 mg sublingual [id number] PRN (Reason: chest pain)
levothyroxine [Synthroid] 112 MCG tablet
112 mcg PO DAILY
ascorbic acid (vitamin C) [Vitamin C] 500 MG tablet
1,000 mg PO DAILY
furosemide 80 mg tablet
80 mg PO BID
losartan 25 MG tablet
25 mg PO DAILY
metolazone 2.5 mg Tablet
2.5 mg PO TUTHSA
zinc sulfate 50 mg zinc (220 mg) Tablet
50 mg PO HS
eplerenone 50 mg Tablet
50 mg PO DAILY
Vitamin D3 Complete 18 mg iron-800 mcg-150 mg Tablet
1 tab PO DAILY
Jardiance 10 mg Tablet
10 mg PO DAILY
Xarelto 20 MG tablet
20 mg PO QPM
cephalexin 500 mg Capsule
500 mg PO BID
acetaminophen 325 mg tablet
650 mg PO Q8H PRN (Reason: pain)
potassium chloride 20 mEq Tablet Extended Release
100 meq PO SUMOWEFR
Rx Instructions:
THE DOSAGE CONFIRMED W/PT;
potassium chloride 20 mEq Tablet Extended Release
120 meq PO TUTHSA
Rx Instructions:
W/METOLAZONE
THE DOSAGE CONFIRMED W/PT;
Zepbound 2.5 mg/0.5 mL Pen Injector
2.5 mg SC QWEEK
Rx Instructions:
QMONDAY
magnesium gluconate 30 mg (550 mg) Tablet
30 mg PO DAILY
metoprolol succinate [Toprol XL] 50 mg tablet extended release 24 hr
25 mg PO BID Qty: 0 0RF
Referrals:
Rod Ludwig MD [Family Provider, Family Practice]
Interventions
Interventions:
*Risk Screen - Suicide Last Done: 03/05/25 23:16
*General Assessment Last Done: 03/06/25 00:01
*Neglect/Abuse Screening Last Done: 03/05/25 23:16
*ED- Fall Risk Assessment Last Done: 03/06/25 00:01
*ED COVID-19 Vaccine History Last Done: 03/06/25 00:01
*ED Influenza Vaccine History Last Done: 03/06/25 00:01
Discharge Date and Time
Print Language: PASHTO
[2025-03-06] VITALS: BP 112/75; BMI 43.2
[2025-03-06 01:00] VITALS: BP 132/78
== END 2025-03-06 01:34 | disposition home or self-care (01) ==
LOC: EMR 23:11
PROVIDERS: EMERGENCY PHYSICIAN Emergency Medicine; FAMILY PHYSICIAN Family Medicine
DX: L76.22 Postprocedural hemorrhage of skin and subcutaneous tissue following other procedure (principal); I48.91 Unspecified atrial fibrillation; I11.0 Hypertensive heart disease with heart failure; I50.9 Heart failure, unspecified; N40.0 Benign prostatic hyperplasia without lower urinary tract symptoms; Z82.49 Family history of ischemic heart disease and other diseases of the circulatory system; Z86.718 Personal history of other venous thrombosis and embolism; Z87.891 Personal history of nicotine dependence; Z90.49 Acquired absence of other specified parts of digestive tract; Z96.653 Presence of artificial knee joint, bilateral
CPT/HCPCS: 99282

== ENCOUNTER 2025-03-27 06:59 | Day surgery (SDC) | payer BC, SELFPAY | END 2025-03-27 09:10 | disposition home or self-care (01) | LOC: CATH 06:59 | PROVIDERS: ATTENDING PHYSICIAN Student in an Organized Health Care Education/Training Program; FAMILY PHYSICIAN Family Medicine; OTHER PHYSICIAN Internal Medicine Cardiovascular Disease | DX: I48.0 Paroxysmal atrial fibrillation (principal); I11.0 Hypertensive heart disease with heart failure; I50.22 Chronic systolic (congestive) heart failure; I25.10 Atherosclerotic heart disease of native coronary artery without angina pectoris; R55 Syncope and collapse; L98.2 Febrile neutrophilic dermatosis [Sweet]; E78.00 Pure hypercholesterolemia, unspecified; Z86.718 Personal history of other venous thrombosis and embolism; Z79.890 Hormone replacement therapy; Z79.899 Other long term (current) drug therapy; Z79.84 Long term (current) use of oral hypoglycemic drugs; Z79.01 Long term (current) use of anticoagulants | CPT/HCPCS: 92960; 93005 ==

== ENCOUNTER 2025-04-18 09:37 | Day surgery (SDC) | payer BC, SELFPAY | END 2025-04-18 12:25 | disposition home or self-care (01) | LOC: CATH 09:37 | PROVIDERS: ATTENDING PHYSICIAN Internal Medicine Cardiovascular Disease; FAMILY PHYSICIAN Family Medicine; OTHER PHYSICIAN Internal Medicine Cardiovascular Disease | DX: I48.0 Paroxysmal atrial fibrillation (principal); I50.22 Chronic systolic (congestive) heart failure; E03.9 Hypothyroidism, unspecified; I42.8 Other cardiomyopathies; I45.4 Nonspecific intraventricular block; I49.1 Atrial premature depolarization; Z86.718 Personal history of other venous thrombosis and embolism; I25.10 Atherosclerotic heart disease of native coronary artery without angina pectoris; E66.01 Morbid (severe) obesity due to excess calories; L98.2 Febrile neutrophilic dermatosis [Sweet] | CPT/HCPCS: 92960; 93005 ==